=== PATIENT | female | born 2000 | race Caucasian/White ===

== ENCOUNTER 2022-06-16 15:56 | Outpatient (CLI) | payer BC, SELFPAY ==
[2022-06-16 16:25] LABS: Basophils Percent Auto 0.3 % (0.2-1.2); Eosinophils Absolute Auto 0.1 K/mm3 (0-0.3); Eosinophils Percent Auto 1.3 % (0-4.4); Hematocrit 39.5 % (37.0-47.0); Hemoglobin 12.5 g/dL (12.0-15.0); Immature Granulocyte Absolute 0.01 K/mm3 (0.00-0.031); Immature Granulocyte Percent A 0.2 % (0-0.5); Lymphocytes Absolute Auto 2.83 K/mm3 (0.9-3.2); Mean Corpuscular HGB Conc 31.6 g/dl (32-36); Mean Corpuscular Hemoglobin 25.9 pg (26-34); Mean Corpuscular Volume 81.8 fl (80-100); Mean Platelet Volume 10.6 fl (7.4-10.4); Monocytes Absolute Auto 0.9 K/mm3 (0.1-0.6); Monocytes Percent Auto 14.3 % (2.6-8.5); Neutrophils Absolute Auto 2.2 K/mm3 (1.3-6.7); Neutrophils Percent Auto 36.9 % (45.5-73.1); Platelet Count Result 245 k/mm3 (150-375); Red Blood Count 4.83 M/mm3 (4.2-5.4); Red Cell Distribution Width 12.9 % (11.5-14.5)
[2022-06-16 16:41] LABS: Alanine Aminotransferase 21 U/L (6-35); Albumin Level 3.6 g/dL (3.7-5.6); Alkaline Phosphatase 145 U/L (45-116); Anion Gap 9 mmol/L (8-16); Aspartate Amino Transferase 22 U/L (14-36); Bilirubin,Total 0.5 mg/dL (0.2-1.3); Blood Urea Nitrogen 10 mg/dL (8-21); Calcium 8.6 mg/dL (8.9-10.7); Carbon Dioxide 23 mmol/L (22-30); Chloride 105 mmol/L (98-107); Estimated Glomerular Filt Rate > 60; Glucose 102 mg/dL (65-110); Potassium 3.9 mmol/L (3.4-5.0); Sodium 137 mmol/L (134-143)
[2022-06-16 17:07] LABS: Free T4 Free Thyroxine > 6.99 ng/mL (0.78-2.19)
[2022-06-16 17:11] LABS: Thyroid Stimulating Hormone < 0.015 uIU/mL (0.465-4.680)
[2022-06-18 19:52] LABS: Thyrotropin Receptor Antibody 15.93 IU/L (<=2.00)
[2022-06-20 04:56] LABS: Thyroid Peroxidase Antibodies 140 IU/mL (<9)
[2022-06-21 14:12] LABS: Thyroid Stimulating Immunoglob 393 % baseline (<140)
== END 2022-06-16 15:57 | disposition home or self-care (01) ==
PROVIDERS: PCP Family Medicine; Visit Provider Internal Medicine
DX: E05.90 Thyrotoxicosis, unspecified without thyrotoxic crisis or storm (principal)
CPT/HCPCS: 36415; 80053; 83519; 84439; 84443; 84445; 85025; 86376

== ENCOUNTER 2022-06-18 10:55 | Outpatient (CLI) | payer BC, SELFPAY ==
--- NOTE | ~2022-06-18 | US_ITS ---
EXAMINATION: US thyroid DATE: 06/18/2022 11:27 INDICATION: Thyrotoxicosis, unspecified without thyrotoxic crisis. TECHNIQUE: Multiple ultrasound images of the thyroid were obtained. COMPARISON: None. FINDINGS: The right thyroid lobe measures 8.4 x 3.1 x 3.8 cm. The left thyroid lobe measures 7.5 x 2.8 x 3.3 c m. The thyroid is diffusely heterogeneous with increased vascularity. In the right thyroid lobe, the re is a 1.8 cm solid, hyperechoic, wider than tall nodule with lobulated margin without echogenic foc i (TI-RADS TR4). IMPRESSION: 1. Heterogeneous, hypervascular thyroid, consistent with Graves' disease. 2. Right thyroid nodule. Ultrasound-guided fine-needle aspiration is recommended. Reviewed, dictated and finalized at location A. IMPRESSION: 1. Heterogeneous, hypervascular thyroid, consistent with Graves' disease. 2. Right thyroid nodule. Ultrasound-guided fine-needle aspiration is recommende d.
== END 2022-06-18 10:56 | disposition home or self-care (01) ==
PROVIDERS: PCP Family Medicine; Visit Provider Internal Medicine
DX: E05.90 Thyrotoxicosis, unspecified without thyrotoxic crisis or storm (principal); E04.1 Nontoxic single thyroid nodule
CPT/HCPCS: 76536

== ENCOUNTER 2022-07-08 06:54 | Outpatient (CLI) | payer BC, SELFPAY ==
--- NOTE | ~2022-07-08 | NM_ITS ---
EXAMINATION: NM thyroid scan w uptake DATE: 07/09/2022 07:49 INDICATION: Graves' disease with nodule COMPARISON: None. TECHNIQUE: 515 microcuries I-123 was administered orally in capsule form. Scintigraphic images of th e thyroid gland were obtained at 24 hours. Thyroid uptake was calculated by the technologist. FINDINGS: The thyroid uptake is 88% (normal 10-30%), with the right lobe measuring 51% uptake and the left 38%. There appears to be subtle decreased uptake at the lateral inferior right thyroid lobe which is in t he vicinity of the previous identified TI-RADS 4 nodule. IMPRESSION: 1. Diffusely elevated 24-hour thyroid iodine uptake consistent with Graves' disease. 2. Subtle decreased uptake in the region of the previously noted TI RADS 4 right thyroid nodule which further strengthens prior recommendation for ultrasound-guided fine-needle aspiration. Reviewed, dictated and finalized at location B. IMPRESSION: 1. Diffusely elevated 24-hour thyroid iodine uptake consistent with Graves' di sease. 2. Subtle decreased uptake in the region of the previously noted TI RADS 4 righ t thyroid nodule which further strengthens prior recommendation for ultrasound- guided fine-needle aspiration.
== END 2022-07-08 06:55 | disposition home or self-care (01) ==
PROVIDERS: PCP Family Medicine; Visit Provider Internal Medicine
DX: E04.9 Nontoxic goiter, unspecified (principal); E05.90 Thyrotoxicosis, unspecified without thyrotoxic crisis or storm
CPT/HCPCS: 78014; A9516

== ENCOUNTER 2022-07-23 11:47 | Outpatient (CLI) | payer BC, SELFPAY ==
[2022-07-23 12:11] LABS: Alanine Aminotransferase 21 U/L (6-35); Albumin Level 3.7 g/dL (3.7-5.6); Alkaline Phosphatase 144 U/L (45-116); Anion Gap 4 mmol/L (8-16); Aspartate Amino Transferase 24 U/L (14-36); Bilirubin,Total 0.7 mg/dL (0.2-1.3); Blood Urea Nitrogen 10 mg/dL (8-21); Calcium 9.2 mg/dL (8.9-10.7); Carbon Dioxide 26 mmol/L (22-30); Chloride 109 mmol/L (98-107); Estimated Glomerular Filt Rate > 60; Glucose 118 mg/dL (65-110); Potassium 3.9 mmol/L (3.4-5.0); Sodium 139 mmol/L (134-143)
[2022-07-23 12:34] LABS: Free T4 Free Thyroxine 6.03 ng/mL (0.78-2.19)
== END 2022-07-23 11:48 | disposition home or self-care (01) ==
LOC: ANHLAB 11:48
PROVIDERS: PCP Family Medicine; Visit Provider Internal Medicine
DX: E04.9 Nontoxic goiter, unspecified (principal); E05.90 Thyrotoxicosis, unspecified without thyrotoxic crisis or storm
CPT/HCPCS: 36415; 80053; 84439

== ENCOUNTER 2022-07-30 12:22 | Outpatient (CLI) | payer BC, SELFPAY ==
--- NOTE | ~2022-07-30 | US_ITS ---
EXAMINATION: US FNA w image guidance DATE: 07/30/2022 13:40 INDICATION: Right thyroid nodule TECHNIQUE: A time-out was performed to verify the patient's name, date of , and procedure to be performed . The procedure and its benefits and risks were discussed with the patient. Risks specifically discus sed included bleeding and infection. The patient understood the risks and agreed to proceed. The neck was prepped and draped in the usual sterile manner. 3 mL 1% lidocaine was used for local anesthesia . 6 passes were made with a 25G needle into the lesion. Appropriate needle location was documented with continuous sonographic guidance. A sterile bandage was applied. There were no immediate compli cations. FINDINGS: Grayscale ultrasound images demonstrate biopsy needles advanced into the 1.6 cm solid hyperechoic nod ule with lobular margins in the right thyroid. IMPRESSION: 1. Successful ultrasound-guided fine needle aspiration of the right thyroid nodule of concern. Reviewed, dictated and finalized at location A. IMPRESSION: 1. Successful ultrasound-guided fine needle aspiration of the right thyroid no dule of concern.
== END 2022-07-30 12:23 | disposition home or self-care (01) ==
PROVIDERS: PCP Family Medicine; Visit Provider Internal Medicine
DX: E04.9 Nontoxic goiter, unspecified (principal); E05.90 Thyrotoxicosis, unspecified without thyrotoxic crisis or storm
CPT/HCPCS: 10005; 88173; 88305

== ENCOUNTER 2022-08-20 15:23 | Outpatient (CLI) | payer BC, SELFPAY ==
[2022-08-20 16:15] LABS: Free T4 Free Thyroxine > 6.99 ng/mL (0.78-2.19)
[2022-08-20 21:13] LABS: Total Triiodothyronine (T3) > 7.81 NG/ML (0.97-1.69)
== END 2022-08-20 15:24 | disposition home or self-care (01) ==
LOC: ANHLAB 15:24
PROVIDERS: PCP Family Medicine; Visit Provider Internal Medicine
DX: E05.90 Thyrotoxicosis, unspecified without thyrotoxic crisis or storm (principal)
CPT/HCPCS: 36415; 84439; 84480

== ENCOUNTER 2022-10-26 13:41 | Outpatient (CLI) | payer BC, SELFPAY ==
[2022-10-26 14:42] LABS: Alanine Aminotransferase 23 U/L (6-35); Albumin Level 4.3 g/dL (3.7-5.6); Alkaline Phosphatase 147 U/L (45-116); Anion Gap 10 mmol/L (8-16); Aspartate Amino Transferase 26 U/L (14-36); Bilirubin,Total 0.5 mg/dL (0.2-1.3); Blood Urea Nitrogen 15 mg/dL (8-21); Calcium 9.7 mg/dL (8.9-10.7); Carbon Dioxide 29 mmol/L (22-30); Chloride 99 mmol/L (98-107); Estimated Glomerular Filt Rate > 60; Glucose 103 mg/dL (65-110); Potassium 4.2 mmol/L (3.4-5.0); Sodium 138 mmol/L (134-143)
[2022-10-26 15:14] LABS: Total Triiodothyronine (T3) 4.92 NG/ML (0.97-1.69)
[2022-10-26 16:19] LABS: Free T4 Free Thyroxine 3.26 ng/mL (0.78-2.19)
== END 2022-10-26 13:42 | disposition home or self-care (01) ==
PROVIDERS: PCP Family Medicine; Visit Provider Internal Medicine
DX: E04.9 Nontoxic goiter, unspecified (principal); E05.90 Thyrotoxicosis, unspecified without thyrotoxic crisis or storm
CPT/HCPCS: 36415; 80053; 84439; 84480

== ENCOUNTER 2022-12-13 12:38 | Outpatient (CLI) | payer BC, SELFPAY ==
[2022-12-13 13:14] LABS: Basophils Percent Auto 0.3 % (0.2-1.2); Eosinophils Absolute Auto 0.1 K/mm3 (0-0.3); Eosinophils Percent Auto 1.2 % (0-4.4); Hematocrit 43.8 % (37.0-47.0); Hemoglobin 14.2 g/dL (12.0-15.0); Immature Granulocyte Absolute 0.02 K/mm3 (0.00-0.031); Immature Granulocyte Percent A 0.3 % (0-0.5); Lymphocytes Absolute Auto 2.67 K/mm3 (0.9-3.2); Lymphocytes Percent Auto 39.3 % (18.3-44.2); Mean Corpuscular HGB Conc 32.4 g/dl (32-36); Mean Corpuscular Hemoglobin 27.5 pg (26-34); Mean Corpuscular Volume 84.7 fl (80-100); Mean Platelet Volume 10.2 fl (7.4-10.4); Monocytes Absolute Auto 0.4 K/mm3 (0.1-0.6); Monocytes Percent Auto 6.3 % (2.6-8.5); Neutrophils Absolute Auto 3.6 K/mm3 (1.3-6.7); Neutrophils Percent Auto 52.6 % (45.5-73.1); Platelet Count Result 310 k/mm3 (150-375); Red Blood Count 5.17 M/mm3 (4.2-5.4); Red Cell Distribution Width 13.2 % (11.5-14.5); White Blood Count 6.8 K/mm3 (4.5-10.0)
[2022-12-13 13:18] LABS: Alanine Aminotransferase 34 U/L (6-35); Albumin Level 4.1 g/dL (3.5-5.1); Alkaline Phosphatase 137 U/L (38-126); Aspartate Amino Transferase 129 U/L (14-36); Bilirubin,Total 0.7 mg/dL (0.2-1.3)
[2022-12-13 13:48] LABS: Total Triiodothyronine (T3) 2.55 NG/ML (0.97-1.69)
[2022-12-13 13:53] LABS: Free T4 Free Thyroxine 1.22 ng/mL (0.78-2.19)
== END 2022-12-13 12:39 | disposition home or self-care (01) ==
LOC: ANHLAB 12:39
PROVIDERS: PCP Family Medicine; Visit Provider Internal Medicine
DX: E05.90 Thyrotoxicosis, unspecified without thyrotoxic crisis or storm (principal); E07.9 Disorder of thyroid, unspecified; H57.89 Other specified disorders of eye and adnexa
CPT/HCPCS: 36415; 80076; 84439; 84480; 85025

== ENCOUNTER 2022-12-28 13:44 | Outpatient (CLI) | payer BC, SELFPAY ==
[2022-12-28 14:29] LABS: Alanine Aminotransferase 23 U/L (6-35); Albumin Level 4.2 g/dL (3.5-5.1); Alkaline Phosphatase 140 U/L (38-126); Aspartate Amino Transferase 25 U/L (14-36); Bilirubin,Total 0.7 mg/dL (0.2-1.3)
[2022-12-28 15:36] LABS: Free T4 Free Thyroxine 1.04 ng/mL (0.78-2.19)
== END 2022-12-28 13:45 | disposition home or self-care (01) ==
LOC: ANHLAB 13:45
PROVIDERS: PCP Family Medicine; Visit Provider Internal Medicine
DX: E04.9 Nontoxic goiter, unspecified (principal); E05.90 Thyrotoxicosis, unspecified without thyrotoxic crisis or storm; R74.8 Abnormal levels of other serum enzymes
CPT/HCPCS: 36415; 80076; 84439

== ENCOUNTER 2023-01-31 14:12 | Outpatient (CLI) | payer BC, SELFPAY ==
[2023-01-31 15:14] LABS: Thyroid Stimulating Hormone < 0.015 uIU/mL (0.465-4.680)
[2023-01-31 15:45] LABS: Free T4 Free Thyroxine 1.82 ng/mL (0.78-2.19)
== END 2023-01-31 14:13 | disposition home or self-care (01) ==
PROVIDERS: PCP Family Medicine; Visit Provider Internal Medicine
DX: E05.90 Thyrotoxicosis, unspecified without thyrotoxic crisis or storm (principal)
CPT/HCPCS: 36415; 84439; 84443

== ENCOUNTER 2023-05-25 11:11 | Outpatient (CLI) | payer OTHER, SELFPAY ==
[2023-05-25 12:23] LABS: Free T4 Free Thyroxine 0.92 ng/mL (0.78-2.19)
[2023-05-25 12:32] LABS: Thyroid Stimulating Hormone < 0.015 uIU/mL (0.465-4.680)
[2023-05-27 19:26] LABS: Thyrotropin Receptor Antibody 6.49 IU/L (<=2.00)
[2023-05-31 14:56] LABS: Thyroid Stimulating Immunoglob 270 % baseline (<140)
== END 2023-05-25 11:12 | disposition home or self-care (01) ==
LOC: ANHLAB 11:13
PROVIDERS: PCP Family Medicine; Visit Provider Internal Medicine
DX: E05.90 Thyrotoxicosis, unspecified without thyrotoxic crisis or storm (principal)
CPT/HCPCS: 36415; 83519; 84439; 84443; 84445

== ENCOUNTER 2023-06-07 13:03 | Outpatient (CLI) | payer OTHER, SELFPAY ==
--- NOTE | ~2023-06-07 | XR_ITS ---
XR humerus LT DATE: 06/07/2023 13:20 INDICATION: Pain TECHNIQUE: AP and lateral views COMPARISON: None FINDINGS: No fracture or dislocation, periosteal reaction or bone destruction. Normal alignment at ac romioclavicular, glenohumeral and elbow joints. IMPRESSION: Negative Incidentally noted is an approximately 1.8 x 37 mm catheter-like density overlying the anterior upper arm approximately 5 cm above the elbow. Reviewed, dictated and finalized at location B. IMPRESSION: Negative Incidentally noted is an approximately 1.8 x 37 mm catheter-like density overly ing the anterior upper arm approximately 5 cm above the elbow.
== END 2023-06-07 13:04 | disposition home or self-care (01) ==
LOC: ANHIMG 13:05
PROVIDERS: PCP Family Medicine; Visit Provider Nurse Practitioner Family
DX: Z30.46 Encounter for surveillance of implantable subdermal contraceptive (principal)
CPT/HCPCS: 73060

== ENCOUNTER 2024-02-15 16:07 | Outpatient (CLI) | payer OTHER, SELFPAY ==
[2024-02-15 18:13] LABS: Total Triiodothyronine (T3) 3.52 NG/ML (0.97-1.69)
== END 2024-02-15 16:08 | disposition home or self-care (01) ==
LOC: ANHLAB 16:09
PROVIDERS: PCP Family Medicine; Visit Provider Internal Medicine
DX: E05.90 Thyrotoxicosis, unspecified without thyrotoxic crisis or storm (principal)
CPT/HCPCS: 36415; 84439; 84480

== ENCOUNTER 2024-03-23 16:03 | Outpatient (CLI) | payer OTHER, SELFPAY ==
[2024-03-23 18:12] LABS: Free T4 Free Thyroxine 2.04 ng/dL (0.78-2.19)
[2024-03-23 18:56] LABS: Alanine Aminotransferase 17 U/L (6-35); Albumin Level 3.9 g/dL (3.5-5.1); Alkaline Phosphatase 110 U/L (38-126); Anion Gap 7 mmol/L (4-12); Aspartate Amino Transferase 20 U/L (14-36); Bilirubin,Total 0.4 mg/dL (0.2-1.3); Blood Urea Nitrogen 14 mg/dL (7-17); Calcium 9.5 mg/dL (8.4-10.2); Carbon Dioxide 27 mmol/L (22-30); Chloride 103 mmol/L (98-107); Estimated Glomerular Filt Rate > 60; Glucose 85 mg/dL (65-110); Sodium 137 mmol/L (137-145)
[2024-03-23 20:50] LABS: Thyroid Stimulating Hormone < 0.015 uIU/mL (0.465-4.680)
[2024-03-23 21:01] LABS: Total Triiodothyronine (T3) 3.22 NG/ML (0.97-1.69)
== END 2024-03-23 16:04 | disposition home or self-care (01) ==
LOC: ANHLAB 16:06
PROVIDERS: PCP Family Medicine; Visit Provider Internal Medicine
DX: E05.90 Thyrotoxicosis, unspecified without thyrotoxic crisis or storm (principal); E05.00 Thyrotoxicosis with diffuse goiter without thyrotoxic crisis or storm
CPT/HCPCS: 36415; 80053; 84439; 84443; 84480

== ENCOUNTER 2024-05-22 07:58 | Outpatient (CLI) | payer OTHER, SELFPAY ==
--- OUTSIDE RECORDS SUMMARY | 2024-05-22 08:11 | XMS_ITS | Clinical Summary ---
Author Organization [facility] Address [address] [facility] [place] [address] Care Team Providers Care Chief Librarian Branch Name Role Phone Matt Sun MD Primary Care Provider [phone] Source Comments [facility],non-owned Affiliates and Associated Physician Practices is amultiple site organization consisting of ambulatory clinics and hospital sitesin [place], [place], [place] and [place]. This disclosure is being madepursuant to the Care Everywhere program and may not contain all information available regarding this patient. Last updated 17.[facility] Allergies No known active allergies Medications * Be aware that medications may not be up to date on this document. Alwaysverify current medications with the patient. Medication Sig Dispensed Refills Start Date End Date Status Benzoyl Peroxide 2.5 % 1 Each by Apply externally route 2 times daily 21 g 1 07/06/2018 Active Active Problems Problem Noted Date Diagnosed Date Anxiety with depression 04/28/2018 Resolved Problems Problem Noted Date Diagnosed Date Resolved Date BMI (body mass index), pedia tric, 95-99% for age 0810/28/2017 12/12/2019 BMI (body mass index), pedia tric, 85% to less than 95% for age 0810/25/2016 10/28/2017 Encounters Date Type Department Care Team Description 03/20/2024 Telephone [facility] - ENT [address] [place] [address] Serene Carlos, RN MH Cancelled Appointment from Last 3 Months Immunizations Name Administration Dates Next Due DTaP VACCINE IM (6wk-6yrs) 08/15/2007,,05/02/2003,03/04,2002 HEP A PEDS 2 DOSE 08/15/2007,11/01/2006 HEP B VACCINE, PED/ADOL 05/02/2003,03/04,2002,10/29 HIB BOOSTER 03/20/2004, 4,03/04/2003,12/31 Human Papilloma Virus Nineva lent Vaccine 10/23/2016,12/01/2015,09/22/2015 MENINGOCOCCAL CONJUGATE (MCV4P) 12/11/2019,09/21 MMR 08/15/2007,11/01/2003 PNEUMOCOCCAL CONJ, PEDS 11/01/2003,05/02,03/04/2003,12/31 POLIO IPV 08/15/2007, 4,03/04/2003,12/31 PPD 11/01/2003 TDAP (7yrs+) 08/23/2013 VARICELLA 11/01/2006,03/20/2004 Family History Medical History Relation Name Comments CAD (Coronary Artery Disease) Father Hypercholesterolemia Father Hypertension Father Relation Name Status Comments Father Social History Tobacco Use Types Packs/Day Years Used Date Smoking Tobacco: Never Smokeless Tobacco: Never Alcohol Use Standard Drinks/Week Comments Never 0 (1 standard drink = 0.6 oz pur e alcohol) AUDIT-C Answer Date Recorded Q1: How often do you have a drink containing alc ohol? Never 06/21/2019 Average Number of Drinks Not on file 020 Frequency of Binge Drinking Not on file 06/05 Sex and Gender Information Value Date Recorded Sex Assigned at Not on file Gender Identity Not on file Sexual Orientation Not on file Last Filed Vital Signs Vital Sign Reading Time Taken Comments Blood Pressure 144/95 12/11/2019 10:33 AM CDT Pulse 134 08/31/2019 11:37 AM CDT Temperature 36.4 C (97.5 F) 12/11/2019 10:33 AM CDT Respiratory Rate 16 06/21/2019 5:59 PM CDT Oxygen Saturation - - Inhaled Oxygen Concentration - - Weight 75.3 kg (166 lb) 12/11/2019 10:33 AM CDT Height 169.5 cm (5' 6.75 ) 12/11/2019 10:33 AM C DT Body Mass Index 26.19 12/11/2019 10:33 AM CDT Plan of Treatment Health Maintenance Due Date Last Done Comments PAP SMEAR 2002 HIV SCREENING 2017 CHLAMYDIA/GONORRHEA SCREENING 2018 MENINGOCOCCAL (Group B) VACC INE SHARED DECISION-MAKING (1 of 2 - Standard) 2018 HEPATITIS C SCREENING 10/24/2020 DTAP/TDAP/TD VACCINES (7 - T d or Tdap) 08/24/2023 08/23/2013, 08/15/2007, 04/27/2004, Additional history exists COVID-19 VACCINE (2023-2 5 season) 2023 INFLUENZA VACCINE (#1) 2023 DEPRESSION SCREENING 03/07/2024 ZOSTER VACCINE (1 of 2) 2052 HEPATITIS B VACCINE Completed 05/02/2003, 03/04/2003, 2002, Additional history exists PNEUMOCOCCAL VACCINE Completed 11/01/2003, 05/02/2003, 03/04/2003, Additional history exists HIB VACCINE Completed 03/20/2004, 05/06, 03/04/2003, Additional history exists HPV VACCINE Completed 10/23/2016, 11/06, 09/22/2015 MENINGOCOCCAL GROUPS A/C/Y/W VACCINE Completed 12/11/2019, 09/22/2015 Goals Goal Patient Goal Type Associated Problems Recent Progress Patient-Stated? Author Use safety retraint in car Lifestyle On track( 020 3:21 PM MEMBERSHIP COUNSELOR) No Stoney Barrios RN Care Teams Chief Librarian Branch Relationship Specialty Start Date End Date Matt Sun MD [address] [place] [address] PCP - General Family Medicine 09/20/22
--- OUTSIDE RECORDS SUMMARY | 2024-05-22 08:11 | XMS_ITS | Referral Summary ---
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 Discharge Disposition: Discharge to home or self care 04/10/2024 6:28 PM SAMPLE TAKER OPERATOR - 04/10/2024 11:59 PM SAMPLE TAKER OPERATOR Hospital Encounter [address] [address] Influenza A Discharge Disposition: Discharge to home or self care 04/10/2024 6:00 PM SAMPLE TAKER OPERATOR Office Visit [facility] Medical Group [facility] at [address] [address] Jeannette Mays PA Influenza A (Primary Dx) 04/10/2024 11:15 AM SAMPLE TAKER OPERATOR Lab [facility] at [address] [address] 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 03/26/2024 11:00 AM SAMPLE TAKER OPERATOR Office Visit [facility] Medical Office Building 2 Radiation Oncology [address] [place] [address] Mendy Sanchez MD 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 03/15/2024 9:45 AM SAMPLE TAKER OPERATOR Office Visit [facility] Ophthalmology [address] [facility] [address]th [place] [address] Conor Neff MD Thyroid eye disease (Primary Dx) 03/01/2024 10:45 PM SAMPLE TAKER OPERATOR - 03/01/2024 11:59 PM SAMPLE TAKER OPERATOR Hospital Encounter [facility] [id number] [place] [address] COVID Discharge Disposition: Discharge to home or self care 03/01/2024 4:15 PM SAMPLE TAKER OPERATOR Office Visit [facility] at [address] [address] Jeannette Mays PA COVID (Primary Dx) 02/23/2024 12:30 PM SAMPLE TAKER OPERATOR Office Visit [facility] Medical [facility] at [address] [address] Gabi Duran NP Acute gastroenteritis (Primary Dx) from Last 3 Months Allergies No known active allergies Medications atenoloL (TENORMIN) 25 mg tablet 08/16/2022 Active PARoxetine (PAXIL) 20 mg tablet TAKE 1 TABLET BY MOUTH EVERY DAY IN THE MORNING FOR 90 DAYS 08/13/2022 Active methIMAzole (TAPAZOLE) 10 mg tablet Take 4 tablets (40 mg total) by mouth daily 09/03/2022 Active selenium 200 mcg tablet Take 0.5 tablets (100 mcg total) by mouth daily 10/21/2022 Active atenoloL (TENORMIN) 50 mg tablet TAKE 1 TABLET ORALLY DAILY HOLD IF SYSTOLIC BLOOD PRESSURE IS LESS THAN 100 OR HR IS LESS THAN 50 02/16/2024 Active amoxicillin (AMOXIL) 875 mg tablet TAKE 1 TABLET BY MOUTH TWICE A DAY UNTILL GONE 04/07/2024 Active Active Problems Problem Noted Date Diagnosed Date 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 Monthly or less 09/20/2022 Average Number of Drinks Not on file 023 Frequency of Binge Drinking Not on file 09/04 Comments Unknown Sex and Gender Information Value Date Recorded Sex Assigned at Not on file Legal Sex Female 11:51 AM CDT Gender Identity Not on file Sexual Orientation Not on file Last Filed Vital Signs Vital Sign Reading Time Taken Comments Blood Pressure 122/82 04/10/2024 6:09 PM SAMPLE TAKER OPERATOR Pulse 110 04/10/2024 6:09 PM SAMPLE TAKER OPERATOR Temperature 36.7 C (98.1 F) 04/10/2024 6:09 PM SAMPLE TAKER OPERATOR Respiratory Rate 20 04/10/2024 6:09 PM SAMPLE TAKER OPERATOR Oxygen Saturation 98% 04/10/2024 6:09 PM SAMPLE TAKER OPERATOR Inhaled Oxygen Concentration - - Weight 87.5 kg (193 lb) 04/10/2024 6:09 PM SAMPLE TAKER OPERATOR Height 167.6 cm (5' 6 ) 02/23/2024 12:29 PM SAMPLE TAKER OPERATOR Body Mass Index 31.15 02/23/2024 12:29 PM SAMPLE TAKER OPERATOR Plan of Treatment Not on file Procedures Procedure Name Priority Date/Time Associated Diagnosis Comments NM CANCER ABLATION I-131 THERAPY Schedule Routine, Read Routine (OP Routine) 04/11/2024 11:01 AM SAMPLE TAKER OPERATOR 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 THROAT CULTURE Routine 04/10/2024 6:28 PM SAMPLE TAKER OPERATOR Influenza A POCT RAPID STREP Routine 04/10/2024 6:20 PM SAMPLE TAKER OPERATOR Influenza A POC INFLUENZA A/B, COVID-19 ANTIGEN Routine 04/10/2024 6:15 PM SAMPLE TAKER OPERATOR Influenza A HCG, BLOOD, QUANTITATIVE Routine 04/10/2024 11:17 AM SAMPLE TAKER OPERATOR 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 Please refer to the physician's procedure / OR operative note. us Mendy Sanchez MD IMG NM PROCEDURES Final R esult Performing Organization Address City/[facility]/ZIP Co de Phone Number [email or web address] * Throat culture Throat (04/10/2024 6:28 PM SAMPLE TAKER OPERATOR) Report Final Report: No growth of pathogens. Comment:Testing performed by : [facility], [address] [place] [address] Throat 04/10/2024 6:28 PM SAMPLE TAKER OPERATOR 04/11/2024 12:09 AM SAMPLE TAKER OPERATOR Narrative MAHENDRA CUNNINGHAM - 04/11/2024 6:38 PM SAMPLE TAKER OPERATOR Testing performed by [facility] Microbiology Laboratory ([phone]). us Jeannette ESTRADA LAB MICROBIOLOGY - GENER AL ORDERABLES Final Result Performing Organization Address City/[facility]/ZIP Co de Phone Number CAYDENCHETNA [address] [address] Department [place] [address] * POCT rapid strep A (04/10/2024 6:20 PM SAMPLE TAKER OPERATOR) Rapid Strep A, POC Negative Negative Swab 04/10/2024 6:20 PM SAMPLE TAKER OPERATOR Jeannette ESTRADA POINT OF CARE TEST ORDER FERNANDO Final Result * (ABNORMAL) POC Influenza A/B, COVID-19 antigen (04/10/2024 6:15 PM SAMPLE TAKER OPERATOR) Influenza A Ag, POC Positive(A) Negative [facility] Influenza B Ag, POC Negative Negative [facility] COVID-19 Ag POC Presumptive Negative Presumptive Negative, Invalid [facility] Nasal 04/10/2024 6:15 PM SAMPLE TAKER OPERATOR Jeannette ESTRADA POINT OF CARE TEST ORDER FERNANDO Final Result Performing Organization Address [facility] Co de Phone Number [facility] [address] [place] [address] * hCG, blood, quantitative (04/10/2024 11:17 AM SAMPLE TAKER OPERATOR) Pathologist [facility] hCG, quant <5.0 0.0 - 5.0 IUnits/L Comment: Interpretive Data Male: < 5 IU/L Non- premenopausal Female: <5 IU/L The Merly hCG Beta Quant assay procedure was used. Results from different manufacturers or methods may not be comparable. Serial testing should be performed using the same method. Interpretive Data was last revised on 2023 Testing performed by: [facility], [address] [place] [address]., [address] Blood 04/10/2024 11:1 7 AM SAMPLE TAKER OPERATOR 04/10/2024 11:44 AM SAMPLE TAKER OPERATOR Mendy Sanchez MD LAB BLOOD ORDERABLES Edit ed Result - Final MAHENDRA [address] [facility] Department [place] [address] * (ABNORMAL) POC Influenza A/B, COVID-19 antigen (03/01/2024 4:32 PM SAMPLE TAKER OPERATOR) Influenza A Ag, POC Negative Negative [facility] Influenza B Ag, POC Negative Negative [facility] COVID-19 Ag POC Positive(A) Presumptive Negative, Invalid [facility] Nasal 03/01/2024 4:32 PM SAMPLE TAKER OPERATOR Jeannette ESTRADA POINT OF CARE TEST ORDER FERNANDO Final Result Performing Organization Address City/[facility]/ZIP Co de Phone Number [facility] [address] [place] [address] * POCT rapid strep A (03/01/2024 4:32 PM SAMPLE TAKER OPERATOR) Pathologist [facility] Rapid Strep A, POC Negative Negative Swab 03/01/2024 4:32 PM SAMPLE TAKER OPERATOR Jeannette ESTRADA POINT OF CARE TEST ORDER FERNANDO Final Result * Throat culture Throat (03/01/2024 4:00 PM SAMPLE TAKER OPERATOR) Report Final Report: No growth of pathogens. Comment:Testing performed by : [facility], [address] [place]., [address] Throat 03/01/2024 4:00 PM SAMPLE TAKER OPERATOR 03/02/2024 6:56 AM SAMPLE TAKER OPERATOR Narrative MAHENDRA Bell 03/03/2024 2:54 PM SAMPLE TAKER OPERATOR Testing performed by [facility] Microbiology Laboratory ([phone]). Jeannette ESTRADA LAB MICROBIOLOGY - GENER AL ORDERABLES Final Result Performing Organization Address City/[facility]/ZIP Co de Phone Number MAHENDRA CUNNINGHAM [address] [address] Department [place] [address] * POC Influenza A/B, COVID-19 antigen (02/23/2024 12:25 PM SAMPLE TAKER OPERATOR) Influenza A Ag, POC Negative Negative [facility] Influenza B Ag, POC Negative Negative [facility] COVID-19 Ag POC Presumptive Negative Presumptive Negative, Invalid [facility] Nasopharyngeal 02/23/2024 12 :25 PM SAMPLE TAKER OPERATOR Gabi Duran NP POINT OF CARE TEST ORDERABLES F inal Result [facility] [address] from Last 3 Months Additional Health Concerns Infection Onset Date Last Indicated COVID: Recovered Comment:Added based on recent COVID infection. 03/11/2024 025 Insurance [facility] Care Teams President [employer] Relationship Specialty Start Date End Date Matt Sun MD [address] [place] [address] PCP - General Family Medicine 08/25/22 Mendy Sanchez MD [address] [address] Radiation Oncologist Radiation Oncology 03/01/24 Perry Rice MD [address] [facility] [address] [place] [address] Consulting Physician Internal Medicine 03/01/24
--- OUTSIDE RECORDS SUMMARY | 2024-05-22 08:11 | XMS_ITS | Referral Summary ---
Author Organization [facility] Address [address] [place] [address] Care Team Providers Care Hi Lift Operator Name Role Phone Matt Sun MD Primary Care Provider [phone] Source Comments [facility],non-owned Affiliates and Associated Physician Practices is amultiple site organization consisting of ambulatory clinics and hospital sitesin [place], [place], [place] and [place]. This disclosure is being madepursuant to the Care Everywhere program and may not contain all information available regarding this patient. Last updated 17.[facility] Encounters Date Type Department Care Team Description 03/20/2024 Telephone [facility] - E[facility] [address] [place] [address] Sernee Carlos, RN MH Cancelled Appointment from Last 3 Months Allergies No known active allergies Medications * [...] less than 95% for age 0810/25/2016 10/28/2017 Immunizations Name Administration Dates Next Due DTaP VACCINE IM (6wk-6yrs) 08/15/2007,,05/02/2003,03/04,2002 HEP A PEDS 2 DOSE 08/15/2007,11/01/2006 HEP B VACCINE, PED/ADOL 05/02/2003,03/04,2002,10/29 HIB BOOSTER 03/20/2004, 4,03/04/2003,12/31 Human Papilloma Virus Nineva lent Vaccine 10/23/2016,12/01/2015,09/22/2015 MENINGOCOCCAL CONJUGATE (MCV4P) 12/11/2019,09/21 MMR 08/15/2007,11/01/2003 PNEUMOCOCCAL CONJ, PEDS 11/01/2003,05/02,03/04/2003,12/31 POLIO IPV 08/15/2007, 4,03/04/2003,12/31 PPD 11/01/2003 TDAP (7yrs+) 08/23/2013 VARICELLA 11/01/2006,03/20/2004 Social History Tobacco Use Types Packs/Day Years [...] 12/11/2019 10:33 AM CDT Plan of Treatment Not on file Goals Goal Patient Goal Type Associated Problems Recent Progress Patient-Stated? Author Use safety retraint in car Lifestyle On track( 020 3:21 PM SHIP/REC/DOC CONTROL) Stoney Barbosa, NAMITA Care Teams Hi Lift Operator Relationship Specialty Start Date End Date Matt Sun MD [address] [place] [address] PCP - General Family Medicine 09/20/22
--- OUTSIDE RECORDS SUMMARY | 2024-05-22 08:11 | XMS_ITS | Clinical Summary ---
Author Organization [facility] Address [address] [place] [address] Care Team Providers Care Maint Mechanic Name Role Phone Matt Sun MD Primary Care Provider [phone] Mendy Sanchez MD Unavailable [phone] Perry Rice MD Unavailable [phone] Allergies No known active allergies Medications atenoloL [...] Graves' disease 09/20/2022 Anxiety with depression 04/28/2018 Encounters Date Type Department Care Team Description 04/11/2024 10:21 AM GOLF COURSE STARTER - 04/11/2024 11:59 PM GOLF COURSE STARTER Hospital Encounter [facility] [address] [address] 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 Discharge Disposition: Discharge to home or self care 04/10/2024 6:28 PM GOLF COURSE STARTER - 04/10/2024 11:59 PM GOLF COURSE STARTER Hospital Encounter [address] [address] Influenza A Discharge Disposition: Discharge to home or self care 04/10/2024 6:00 PM GOLF COURSE STARTER Office Visit [facility] at [address] [address] Jeannette Mays PA Influenza A (Primary Dx) 04/10/2024 11:15 AM GOLF COURSE STARTER Lab [facility] at [address] [address] 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 03/26/2024 11:00 AM GOLF COURSE STARTER Office Visit [facility] Building 2 Radiation Oncology [address] [place] [address] Mendy Sanchez MD 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 03/15/2024 9:45 AM GOLF COURSE STARTER Office Visit [facility] Ophthalmology [facility] [address] [place] [phone] Conor Neff MD Thyroid eye disease (Primary Dx) 03/01/2024 10:45 PM GOLF COURSE STARTER - 03/01/2024 11:59 PM GOLF COURSE STARTER Hospital Encounter [address] [address] COVID Discharge Disposition: Discharge to home or self care 03/01/2024 4:15 PM GOLF COURSE STARTER Office Visit [facility] at [address] [address] Jeannette Mays PA COVID (Primary Dx) 02/23/2024 12:30 PM GOLF COURSE STARTER Office Visit [facility] at [address] [address] Gabi Duran NP Acute gastroenteritis (Primary Dx) from Last 3 Months Surgical History Surgery Date Site/Laterality Comments TONSILLECTOMY 03/07/2009 - 03/06/2010 HERNIA REPAIR 03/07/2005 - 03/06/2006 abdominal WISDOM TOOTH EXTRACTION 03/07/2018 - 03/06/2019 Medical History Medical History Date Comments Thyroid disease Hypertension Anxiety Depression Family History Medical History Relation Name Comments Thyroid disease Cousin Thyroid disease Father's Sister 1 Thyroid disease Father's Sister 2 Glaucoma Maternal Grandfather Thyroid disease Paternal Grandmother Macular degeneration Neg Hx Relation Name Status Comments Cousin Alive Father's Sister 1 Father's Sister 2 Alive Maternal Grandfather Paternal Grandmother Social History Tobacco Use Types Packs/Day Years [...] on file Sexual Orientation Not on file Obstetrics History Last Filed Vital Signs Vital Sign Reading Time Taken Comments Blood Pressure 122/82 04/10/2024 6:09 PM GOLF COURSE STARTER Pulse 110 04/10/2024 6:09 PM GOLF COURSE STARTER Temperature 36.7 C (98.1 F) 04/10/2024 6:09 PM GOLF COURSE STARTER Respiratory Rate 20 04/10/2024 6:09 PM GOLF COURSE STARTER Oxygen Saturation 98% 04/10/2024 6:09 PM GOLF COURSE STARTER Inhaled Oxygen Concentration - - Weight 87.5 kg (193 lb) 04/10/2024 6:09 PM GOLF COURSE STARTER Height 167.6 cm (5' 6 ) 02/23/2024 12:29 PM GOLF COURSE STARTER Body Mass Index 31.15 02/23/2024 12:29 PM GOLF COURSE STARTER Plan of Treatment Health Maintenance Due Date Last Done Comments Cervical Cancer Screening 2002 Depression Screening 2002 Hepatitis C Screening 2002 Meningococcal B Vaccine (1 o f 2 - Standard) 2018 Regular Well Visit/Exam 18-64 2020 Pneumococcal vaccine <65 (1 of 2 - PCV) 2021 DTaP/Tdap/Td Vaccine (7 - Td or Tdap) 08/24/2023 08/23/2013, 08/15/2007, 04/27/2004, Additional history exists Influenza Vaccine (#1) 2023 Hepatitis B Screening Completed 05/02/2003 , 03/04/2003, 2002, Additional history exists Varicella Vaccines Completed 11/01/2006, 03/20/2004 HPV Vaccines Completed 10/23/2016, 11/06, 09/22/2015 Meningococcal Vaccine Completed 12/11/2019, 016 Procedures Procedure Name Priority Date/Time Associated Diagnosis Comments NM CANCER ABLATION I-131 THERAPY Schedule Routine, Read Routine (OP Routine) 04/11/2024 11:01 AM GOLF COURSE STARTER 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 THROAT CULTURE Routine 04/10/2024 6:28 PM GOLF COURSE STARTER Influenza A POCT RAPID STREP Routine 04/10/2024 6:20 PM GOLF COURSE STARTER Influenza A POC INFLUENZA A/B, COVID-19 ANTIGEN Routine 04/10/2024 6:15 PM GOLF COURSE STARTER Influenza A HCG, BLOOD, QUANTITATIVE Routine 04/10/2024 11:17 AM GOLF COURSE STARTER 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 Please refer to the physician's procedure / OR operative note. Mendy Sanchez MD IMG NM PROCEDURES Final R esult Performing Organization Address City/[facility]/ZIP Co de Phone Number RAD_[email or web address] * Throat culture Throat (04/10/2024 6:28 PM GOLF COURSE STARTER) Report Final Report: No growth of pathogens. Comment:Testing performed by : [facility], [address] [facility], [place]., [address] Throat 04/10/2024 6:28 PM GOLF COURSE STARTER 04/11/2024 12:09 AM GOLF COURSE STARTER Narrative MAHENDRA - 04/11/2024 6:38 PM GOLF COURSE STARTER Testing performed by [facility] ([phone]). Jeannette ESTRADA LAB MICROBIOLOGY - GENER AL ORDERABLES Final Result Performing Organization Address [facility] Co de Phone Number MAHENDRA [address] [address] Department [place] [address] * POCT rapid strep A (04/10/2024 6:20 PM GOLF COURSE STARTER) Pathologist [facility] Rapid Strep A, POC Negative Negative Swab 04/10/2024 6:20 PM GOLF COURSE STARTER Jeannette ESTRADA POINT OF CARE TEST ORDER FERNANDO Final Result * (ABNORMAL) POC Influenza A/B, COVID-19 antigen (04/10/2024 6:15 PM GOLF COURSE STARTER) Influenza A Ag, POC Positive(A) Negative [facility] Influenza B Ag, POC Negative Negative [facility] COVID-19 Ag POC Presumptive Negative Presumptive Negative, Invalid [facility] Nasal 04/10/2024 6:15 PM GOLF COURSE STARTER Jeannette ESTRADA POINT OF CARE TEST ORDER FERNANDO Final Result Performing Organization Address [facility] Co de Phone Number [facility] [address] [place] [address] * hCG, blood, quantitative (04/10/2024 11:17 AM GOLF COURSE STARTER) hCG, quant <5.0 0.0 - 5.0 IUnits/L Comment: Interpretive Data Male: < 5 IU/L Non- premenopausal Female: <5 IU/L The Mer[employer] hCG Beta Quant assay procedure was used. Results from different manufacturers or methods may not be comparable. Serial testing should be performed using the same method. Interpretive Data was last revised on 2023 Testing performed by: [facility], [address] [place] [address]., [id number] Blood 04/10/2024 11:1 7 AM GOLF COURSE STARTER 04/10/2024 11:44 AM GOLF COURSE STARTER Mendy Sanchez MD LAB BLOOD ORDERABLES Edit ed Result - Final Performing Organization Address [facility] Co de Phone Number MAHENDRA [address] [facility] [place] [address] * (ABNORMAL) POC Influenza A/B, COVID-19 antigen (03/01/2024 4:32 PM GOLF COURSE STARTER) Influenza A Ag, POC Negative Negative [facility] Influenza B Ag, POC Negative Negative [facility] COVID-19 Ag POC Positive(A) Presumptive Negative, Invalid [facility] Nasal 03/01/2024 4:32 PM GOLF COURSE STARTER Jeannette ESTRADA POINT OF CARE TEST ORDER FERNANDO Final Result Performing Organization Address City/[facility] Co de Phone Number [facility] [address] [place] [address] * POCT rapid strep A (03/01/2024 4:32 PM GOLF COURSE STARTER) Rapid Strep A, POC Negative Negative Swab 03/01/2024 4:32 PM GOLF COURSE STARTER Jeannette ESTRADA POINT OF CARE TEST ORDER FERNANDO Final Result * Throat culture Throat (03/01/2024 4:00 PM GOLF COURSE STARTER) Report Final Report: No growth of pathogens. Comment:Testing performed by : [facility], [address] [place]., [address] Throat 03/01/2024 4:00 PM GOLF COURSE STARTER 03/02/2024 6:56 AM GOLF COURSE STARTER Narrative MAHENDRA - 03/03/2024 2:54 PM GOLF COURSE STARTER Testing performed by [facility] ([phone]). Jeannette ESTRADA LAB MICROBIOLOGY - GENER AL ORDERABLES Final Result [facility] [address] [address] Department [place] [address] * POC Influenza A/B, COVID-19 antigen (02/23/2024 12:25 PM GOLF COURSE STARTER) Influenza A Ag, POC Negative Negative [facility] Influenza B Ag, POC Negative Negative [facility] COVID-19 Ag POC Presumptive Negative Presumptive Negative, Invalid [facility] Nasopharyngeal 02/23/2024 12 :25 PM GOLF COURSE STARTER Gabi Duran NP POINT OF CARE TEST ORDERABLES F inal Result [facility] [address] [place] [address] from Last 3 Months Additional Health Concerns Infection Onset Date Last Indicated COVID: Recovered Comment:Added based on recent COVID infection. 03/11/2024 025 Insurance [facility] [address] [place] [phone] Care Teams Maint Mechanic Relationship Specialty Start Date End Date Matt Sun MD [address] [place] [id number] PCP - General Family Medicine 08/25/22 Mendy Sanchez MD [address] [address] Radiation Oncologist Radiation Oncology 03/01/24 Perry Rice MD [address] [facility] [address] [place] [address] Consulting Physician Internal Medicine 03/01/24
--- OUTSIDE RECORDS SUMMARY | 2024-05-22 08:11 | XMS_ITS | Patient Health Summary ---
Author Organization [facility] [employer] Address [address] [place] [address] Care Team Providers Care Shift Leader Name Role Phone Matt Sun MD Primary Care Provider [phone] Note from [facility],non-owned Affiliates and Associated Physician Practices is amultiple site organization consisting of ambulatory clinics and hospital sitesin [place], [place], [place] and [place]. This disclosure is being madepursuant to the Care Everywhere program and may not contain all information available regarding this patient. Last updated 17.[facility] [employer] Allergies No known active allergies Medications * Be aware that medications may not be up to date on this document. Alwaysverify current medications with the patient. * Benzoyl Peroxide 2.5 %(Started 07/06/2018) 1 Each by Apply externally route 2 times daily 1 refill remaining Active Problems Problem Noted Date Diagnosed Date Anxiety with depression 04/28/2018 Resolved Problems Problem Noted Date Diagnosed Date Resolved Date BMI (body mass index), pedia tric, 95-99% for age 0810/28/2017 12/12/2019 BMI (body mass index), pedia tric, 85% to less than 95% for age 0810/25/2016 10/28/2017 Immunizations * DTaP VACCINE IM (6wk-6yrs)(Given 08/15/2007, 04/27/2004, 05/02/2003, 03/04/2003, 2002) * HEP A PEDS 2 DOSE(Given 08/15/2007, 11/01/2006) * HEP B VACCINE, PED/ADOL(Given 05/02/2003, 03/04/2003, 2002, 2002) * HIB BOOSTER(Given 03/20/2004, 05/31/2003, 03/04/2003, 2002) * Human Papilloma Virus Ninevalent Vaccine(Given 10/23/2016, 12/01/2015, 09/22/2015) * MENINGOCOCCAL CONJUGATE (MCV4P)(Given 12/11/2019, 09/22/2015) * MMR(Given 08/15/2007, 11/01/2003) * PNEUMOCOCCAL CONJ, PEDS(Given 11/01/2003, 05/02/2003, 03/04/2003, 2002) * POLIO IPV(Given 08/15/2007, 05/02/2003, 03/04/2003, 2002) * PPD(Given 11/01/2003) * TDAP (7yrs+)(Given 08/23/2013) * VARICELLA(Given 11/01/2006, 03/20/2004) Social History Tobacco Use Types Packs/Day Years [...] Mass Index 26.19 12/11/2019 10:33 AM CDT Procedures * LAB RESULTS ORDER(Performed 02/16/2020) * LIPID PROFILE+GLUCOSE - POINT OF CARE (AMB)(Performed 12/11/2019) Performed for Screening cholesterol level * CULTURE RESPIRATORY UPPER(Performed 04/04/2017) * MYCOPLASMA PNEUMONIAE AB IGG/IGM PANEL(Performed 04/04/2017) Performed for Malaise and fatigue * BERTRAND-JOHNSON VIRUS ANTIBODY PANEL(Performed 04/04/2017) Performed for Malaise and fatigue * COMPREHENSIVE METABOLIC PANEL(Performed 04/04/2017) Performed for Malaise and fatigue * CBC W AUTO DIFFERENTIAL(Performed 04/04/2017) Performed for Malaise and fatigue * STREP A SCREEN - POINT OF CARE (AMB)(Performed 04/04/2017) Performed for Sore throat * XR BONE AGE STUDY(Performed 07/31/2010) Performed for Premature adrenarche (HCC) * LIPID PROFILE(Performed 06/06/2010) Performed for BMI (body mass index), pediatric, 85% to less than 95% for age * TESTOSTERONE TOTAL(Performed 06/06/2010) Performed for Premature adrenarche (HCC) * ESTRADIOL(Performed 06/06/2010) Performed for Premature adrenarche (HCC) * FSH + LH PANEL(Performed 06/06/2010) Performed for Premature adrenarche (HCC) * STREP A SCREEN - POINT OF CARE (AMB)(Performed 01/10/2010) Performed for Sore throat * CULTURE THROAT(Performed 01/10/2010) * STREP A SCREEN - POINT OF CARE (AMB)(Performed 12/04/2009) Performed for Streptococcal sore throat * XR AIRWAY LAT(Performed 12/04/2009) Performed for Snoring * STREP A SCREEN - POINT OF CARE (AMB)(Performed 03/28/2009) Performed for Streptococcal Sore Throat * GROSS + MICRO EXAM(Performed 06/10/2004) Results * LAB RESULTS ORDER (02/16/2020) Provider Unknown LAB - THERAPEUTIC DR WORTHY MONITORING ORDERABLES * LIPID PROFILE+GLUCOSE - POINT OF CARE (AMB) (12/11/2019 11:08 AM CDT) QC Verified Yes Yes Cholesterol POCT 161 200 mg/dl HDL POCT 58 mg/dL Triglycerides POCT 102 130 mg/dL LDL 83 130 mg/dl Non HDL Cholesterol POCT 103 145 mg/dL Total Cholesterol/HDL Ratio POCT 2.8 6.0 Glucose 97 70 - 126 mg/dL Blood BLOOD SPECIMEN / Unknown 12/11/2019 11:08 AM CDT Marita Rubalcava MD LAB - POINT OF CARE ORDERABLES * CULTURE RESPIRATORY UPPER (04/04/2017 4:53 PM FLASH RANGING CREWMEMBER) Upper Respiratory Culture Final report [facility] ACCOUNT BILL Result 1 [facility] ACCOUNT BILL Comment:Mixed bacterial tish a. 04/04/2017 4:53 PM FLASH RANGING CREWMEMBER 04/04/2017 Narrative Resulting Agency Comment [facility] [address] [facility] [id number] Tucker James DO LAB - MICROBIOL OGY ORDERABLES Performing Organization Address [facility] de Phone Number [facility] ACCOUNT BILL [address] [place] [address] * (ABNORMAL) MYCOPLASMA PNEUMO ANTIBODY IGG/IGM PANEL (04/04/2017 3:22 PM FLASH RANGING CREWMEMBER) Pathologist [facility] Mycoplasma pneumoniae Antibody IgG 315(H) 0 - 99 U/mL [facility] ACCOUNT BILL Comment: Negative: <100 Indeterminate: 100 - 320 Positive: >320 The reference interval established is intended as a baseline only. Values >100 may indicate a recent infection with Mycoplasma pneumoniae and need to be confirmed either by a positive IgM result and/or an additional specimen drawn 2-4 weeks later showing a significant increase in antibody levels. Mycoplasma pneumoniae Antibody IgM <770 0 - 769 U/mL [facility] ACCOUNT BILL Comment: Negative <770 Clinically significant amount of M. pneumoniae antibody not detected. Low Positive 770 - 950 M. pneumoniae specific IgM presumptively detected. It is recommended that another sample be collected 1-2 weeks later to assure reactivity. Positive >950 Highly significant amount of M. pneumoniae specific IgM antibody detected. Blood BLOOD SPECIMEN / Unknown 04/04/2017 3:22 PM FLASH RANGING CREWMEMBER 04/04/2017 Narrative Resulting Agency Comment [facility] [address] [facility] [id number] Tucker James DO LAB - SEROLOGY ORDERABLES Performing Organization Address City/[facility]/ZIP Co de Phone Number [facility] ACCOUNT BILL [address] [place] [address] * BERTRAND-JOHNSON VIRUS PANEL (04/04/2017 3:22 PM FLASH RANGING CREWMEMBER) Bertrand-Johnson Viral Capsid Antigen Antibody IgM <36.0 0.0 - 35.9 U/mL [facility] ACCOUNT BILL Comment: Negative <36.0 Equivocal 36.0 - 43.9 Positive >43.9 Bertrand-Johnson Virus Early Antigen Antibody IgG <9.0 0.0 - 8.9 U/mL [facility] ACCOUNT BILL Comment: Negative < 9.0 Equivocal 9.0 - 10.9 Positive >10.9 Bertrand-Johnson Viral Capsid Antigen Antibody IgG <18.0 0.0 - 17.9 U/mL [facility] ACCOUNT BILL Comment: Negative <18.0 Equivocal 18.0 - 21.9 Positive >21.9 Bertrand-Johnson Virus Antibody IgG Nuclear Antigen <18.0 0.0 - 17.9 U/mL [facility] ACCOUNT BILL Comment: Negative <18.0 Equivocal 18.0 - 21.9 Positive >21.9 Interpretation [facility] ACCOUNT BILL Comment: EBV Interpretation Chart . Interpretation EBV-IgM EA(D)-IgG VCA-IgG EBNA-IgG . EBV Seronegative - - - - Early Phase + - - - Acute Primary + +or- + - Infection Convalescence/Past - +or- + + Infection Reactivated +or- + + + Infection + Antibody Present - Antibody Absent Blood BLOOD SPECIMEN / Unknown 04/04/2017 3:22 PM FLASH RANGING CREWMEMBER 04/04/2017 Narrative Resulting Agency Comment [facility] [address] [facility] [id number] Tucker James DO LAB - CHEMISTRY ORDERABLES [facility] ACCOUNT BILL [address] [place] [address] * (ABNORMAL) CBC W AUTO DIFFERENTIAL (04/04/2017 3:22 PM FLASH RANGING CREWMEMBER) WBC 11.5(H) 3.4 - 10.8 x10E3/uL [facility] ACCOUNT BILL RBC 4.44 3.77 - 5.28 x10E6/uL [facility] ACCOUNT BILL Hemoglobin 13.1 11.1 - 15.9 g/dL [facility] ACCOUNT BILL Hematocrit 39.3 34.0 - 46.6 % [facility] ACCOUNT BILL MCV 89 79 - 97 fL [facility] ACCOUNT BILL MCH 29.5 26.6 - 33.0 pg [facility] ACCOUNT BILL MCHC 33.3 31.5 - 35.7 g/dL [facility] ACCOUNT BILL RDW 13.0 12.3 - 15.4 % [facility] ACCOUNT BILL Platelet Count 267 150 - 379 x10E3/uL [facility] ACCOUNT BILL Granulocytes % 63 Not Estab. % [facility] ACCOUNT BILL Lymphocytes % 25 Not Estab. % [facility] ACCOUNT BILL Monocytes % 11 Not Estab. % [facility] ACCOUNT BILL Eosinophils % 1 Not Estab. % [facility] ACCOUNT BILL Basophils % 0 Not Estab. % [facility] ACCOUNT BILL Immature Cells NOT NEEDED [facility] ACCOUNT BILL Comment:Ancillary determined the test is not needed Granulocytes Absolute 7.1(H) 1.4 - 7.0 x10E3/uL [facility] ACCOUNT BILL Lymphocytes Absolute 2.9 0.7 - 3.1 x10E3/uL [facility] ACCOUNT BILL Monocytes Absolute 1.3(H) 0.1 - 0.9 x10E3/uL [facility] ACCOUNT BILL Eosinophils Absolute 0.1 0.0 - 0.4 x10E3/uL [facility] ACCOUNT BILL Basophils Absolute 0.0 0.0 - 0.3 x10E3/uL [facility] ACCOUNT BILL Immature Granulocytes 0 Not Estab. % [facility] ACCOUNT BILL Immature Granulocytes Absolute 0.0 0.0 - 0.1 x10E3/uL [facility] ACCOUNT BILL nRBC NOT NEEDED [facility] ACCOUNT BILL Comment:Ancillary determined the test is not needed Comment Hematology NOT NEEDED [facility] ACCOUNT BILL Comment:Ancillary determined the test is not needed Blood BLOOD SPECIMEN / Unknown 04/04/2017 3:22 PM FLASH RANGING CREWMEMBER 04/04/2017 Narrative Resulting Agency Comment [facility] [address] [facility] [id number] Tucker James DO LAB - HEMATOLOG Y ORDERABLES [facility] ACCOUNT BILL [address] [place] [address] * COMPREHENSIVE METABOLIC PANEL (04/04/2017 3:22 PM FLASH RANGING CREWMEMBER) Glucose 70 65 - 99 mg/dL [facility] ACCOUNT BILL BUN 13 5 - 18 mg/dL [facility] ACCOUNT BILL Creatinine 0.68 0.49 - 0.90 mg/dL [facility] ACCOUNT BILL BUN/Creatinine Ratio 19 10 - 22 [facility] ACCOUNT BILL Sodium 142 134 - 144 mmol/L [facility] ACCOUNT BILL Potassium 4.7 3.5 - 5.2 mmol/L [facility] ACCOUNT BILL Chloride 103 96 - 106 mmol/L [facility] ACCOUNT BILL CO2 24 18 - 29 mmol/L [facility] ACCOUNT BILL Calcium 9.7 8.9 - 10.4 mg/dL [facility] ACCOUNT BILL Protein Total 6.7 6.0 - 8.5 g/dL [facility] ACCOUNT BILL Albumin 4.0 3.5 - 5.5 g/dL [facility] ACCOUNT BILL Globulin Total 2.7 1.5 - 4.5 g/dL [facility] ACCOUNT BILL Albumin/Globulin Ratio 1.5 1.2 - 2.2 [facility] ACCOUNT BILL Bilirubin Total <0.2 0.0 - 1.2 mg/dL [facility] ACCOUNT BILL Alkaline Phosphatase 95 62 - 149 IU/L [facility] ACCOUNT BILL AST 15 0 - 40 IU/L [facility] ACCOUNT BILL ALT 10 0 - 24 IU/L [facility] ACCOUNT BILL Blood BLOOD SPECIMEN / Unknown 04/04/2017 3:22 PM FLASH RANGING CREWMEMBER 04/04/2017 Narrative Resulting Agency Comment [facility] [address] [facility] [id number] Tucker James DO LAB - CHEMISTRY ORDERABLES [facility] ACCOUNT BILL [address] [place] [address] * STREP A SCREEN - POINT OF CARE (AMB) (04/04/2017 1:01 PM FLASH RANGING CREWMEMBER) Only the most recent of4 resultswithin the time period is included. Strep A Rapid POCT Negative Negative Strep A Internal Control Present Other ENTIRE THROAT (SURFACE REGION OF NECK) / Unknown 04/04/2017 1:01 PM FLASH RANGING CREWMEMBER Tucker James DO LAB - POINT OF CARE ORDERABLES * XR BONE AGE HAND AND WRIST (07/31/2010 12:49 PM CDT) Anatomical Region Laterality Modality Upper Extremity, Wrist / Hand Ra diographic Imaging 07/31/2010 1:01 PM CDT Impressions 07/31/2010 1:01 PM CDT Bone age is within 2 standard deviations of chronologic age. Narrative 07/31/2010 1:01 PM CDT EXAMINATION:Bone age dated July 31, 2010 12:49:38 PM . HISTORY: [age] year 9-month-old female with precocious puberty. Single AP view of the left hand and wrist were obtained for bone age determination. Based on the standards of Greulich and Kaushal the patient has a bone age of 9 years, 10 months. Given the patient's chronologic age of 9 years, 9 months, there is a standard deviation of 8.5 months. Procedure Note Hamilton Barrett - 07/31/2010 EXAMINATION:Bone age dated July 31, 2010 12:49:38 PM . HISTORY: [age] year 9-month-old female with precocious puberty. Single AP view of the left hand and wrist were obtained for bone age determination. Based on the standards of Greulich and Kaushal the patient has a bone age of 9 years, 10 months. Given the patient's chronologic age of 9 years, 9 months, there is a standard deviation of 8.5 months. IMPRESSION Bone age is within 2 standard deviations of chronologic age. Lainey Sánchez MD DIAGNOSTIC IMAGING O RDERABLES * (ABNORMAL) LIPID PROFILE (06/06/2010 9:26 AM CDT) Cholesterol 170(H) 100 - 169 mg/dL [facility] ACCOUNT BILL Triglycerides 50 0 - 149 mg/dL [facility] ACCOUNT BILL HDL Cholesterol 55 >39 mg/dL [facility] ACCOUNT BILL Comment: According to ATP-III Guidelines, HDL-C >59 mg/dL is considered a negative risk factor for CHD. VLDL Calculated 10 5 - 40 mg/dL [facility] ACCOUNT BILL LDL Calculated 105(H) 0 - 99 mg/dL [facility] ACCOUNT BILL BLOOD SPECIMEN / Unknown 06/06/2010 9:26 AM CDT 06/06/2010 6:12 PM CDT Narrative Resulting Agency Comment [address] [id number] Lainey Sánchez MD LAB - CHEMISTRY KATY SANCHEZ Performing Organization Address [facility] Co de Phone Number [facility] ACCOUNT BILL * TESTOSTERONE TOTAL (06/06/2010 9:24 AM CDT) Testosterone <3 ng/dL [facility] ACCOUNT BILL Comment: FEMALE CARLA STAGE 1 <3 - 6 2 <3 - 10 3 <3 - 24 4 <3 - 27 5 5 - 38 [facility] now offers an enhanced accuracy testosterone test specifically designed for lower testosterone levels (test #885246; Testosterone, Total, Women, Children and Hypogonadal Males, LC/MS-MS). CDC and several academic societies recommend improved testosterone tests for women, children, and hypogonadal males and should be performed using test #719482. BLOOD SPECIMEN / Unknown 06/06/2010 9:24 AM CDT 06/06/2010 6:13 PM CDT Narrative Resulting Agency Comment [facility] [address] [facility] [phone] Lainey Sánchez MD LAB - CHEMISTRY KATY SANCHEZ Performing Organization Address [facility] Co de Phone Number [facility] ACCOUNT BILL * ESTRADIOL (06/06/2010 9:24 AM CDT) Estradiol 7.4 pg/mL [facility] ACCOUNT BILL Comment: Adult Female: Follicular phase 12.5 - 166.0 Ovulation phase 85.8 - 498.0 Luteal phase 43.8 - 211.0 Postmenopausal <6.0 - 54.7 1st trimester 215.0 - >4300.0 Girls (1-10 years) 6.0 - 27.0 Merly ECLIA methodology BLOOD SPECIMEN / Unknown 06/06/2010 9:24 AM CDT 06/06/2010 6:13 PM CDT Narrative Resulting Agency Comment [facility] [place] [address] [facility] [phone] Lainey Sánchez MD LAB - CHEMISTRY KATY Arauz Organization Address City/State/ZIP Co de Phone Number [facility] ACCOUNT BILL * FSH + LH PANEL (06/06/2010 9:24 AM CDT) LH 0.1 mIU/mL [facility] ACCOUNT BILL Comment: <24 hours <0.2 - 1.0 1 day <0.2 - 0.8 2 days <0.2 - 0.6 3 days <0.2 - 2.7 4 days <0.2 - 1.7 5 days <0.2 - 3.1 6 days 0.4 - 6.4 7 days <0.2 - 5.6 8 - 30 days <0.2 - 7.8 1 - 12 month <0.2 - 0.4 1 - 4 years <0.2 - 0.5 5 - 9 years <0.2 - 3.1 10 - 12 years <0.2 - 11.9 13 - 16 years 0.5 - 41.7 . Adult Female: Follicular phase 2.4 - 12.6 Ovulation phase 14.0 - 95.6 Luteal phase 1.0 - 11.4 FSH 1.8 mIU/mL [facility] ACCOUNT BILL Comment: <24 hours <0.2 - 0.8 1 day <0.2 - 0.8 2 days <0.2 - 0.8 3 days <0.2 - 2.4 4 days <0.2 - 2.3 5 days <0.2 - 3.4 6 days <0.2 - 4.5 7 days 0.2 - 21.4 8 - 30 days <0.2 - 22.2 1 - 12 months Not Estab. 1 - 4 years 0.2 - 11.1 5 - 9 years 0.3 - 11.1 10 - 12 years 2.1 - 11.1 13 - 16 years 1.6 - 17.0 . Adult Female: Follicular phase 3.5 - 12.5 Ovulation phase 4.7 - 21.5 Luteal phase 1.7 - 7.7 BLOOD SPECIMEN / Unknown 06/06/2010 9:24 AM CDT 06/06/2010 6:13 PM CDT Narrative Resulting Agency Comment [facility] [address] [facility] [id number] Lainey Sánchez MD LAB - CHEMISTRY ORDE RABLES [facility] ACCOUNT BILL * CULTURE THROAT (01/10/2010 10:56 AM CDT) Upper Respiratory Culture Final report [facility] ACCOUNT BILL Result 1 [facility] ACCOUNT BILL Comment:Routine respiratory nicki ENTIRE PHARYNX / Unknown 01/10/2010 10:56 AM CDT 01/10/2010 5:38 PM CDT Narrative Resulting Agency Comment [facility] [address] [facility] [id number] Marita Rubalcava MD LAB - MICROBIOLOGY O RDERABLES Performing Organization Address City/[facility]/ZIP Co de Phone Number [facility] ACCOUNT BILL * XR AIRWAY LAT (12/04/2009) Anatomical Region Laterality Modality Head Other Lainey Sánchez MD DIAGNOSTIC IMAGING O RDERABLES * GROSS + MICRO EXAM (06/10/2004 9:30 AM CDT) Result CASE NUMBER [id number] [facility] PATH REPORT Comment: ORDERING PHYSICIAN LIO CESPEDES SPECIMEN TYPE Hernia Sac-Ventral CLINICAL HISTORY The patient is a 3-year-old girl with a ventral hernia who underwent repair of the same. GROSS DESCRIPTION The specimen, labeled with the patient's name and ventral hernia sac, is received fresh for gross and microscopic examination and consists of a 1.0 x 0.5 x 0.3 cm fragment of shaggy, pink-amor, soft tissue submitted in toto as A . (CT/pg) MICROSCOPIC DESCRIPTION (1 H/E) (CSA/lw) DIAGNOSIS DIAGNOSIS VENTRAL HERNIA SAC - FIBROUS CONNECTIVE TISSUE CONSISTENT WITH HERNIA SAC. This case has been personally reviewed and interpreted by the attending (teaching) pathologist. [employer] MARIA ELENA HENSON PATHOLOGIST Nicolas Thomas M.D. ELECTRONICALLY MARILYN Nicolas Thomas MISCELLANEOUS SAMPLES / Unknown 06/10/2004 9:30 AM CDT 06/10/2004 10:33 AM CDT Historical Provider LAB - PATHOLOGY/C YTOLOGY ORDERABLES [facility] PATH REPORT Care Teams Shift Leader Relationship Specialty Start Date End Date Matt Sun MD [address] [place] [address] PCP - General Family Medicine 09/20/22
[2024-05-22 09:57] LABS: Thyroid Stimulating Hormone < 0.015 uIU/mL (0.465-4.680); Total Triiodothyronine (T3) 2.04 NG/ML (0.97-1.69)
[2024-05-22 10:18] LABS: Free T4 Free Thyroxine 1.79 ng/dL (0.78-2.19)
== END 2024-05-22 07:59 | disposition home or self-care (01) ==
LOC: ANHLAB 07:59
PROVIDERS: PCP Family Medicine; Visit Provider Internal Medicine
DX: E05.00 Thyrotoxicosis with diffuse goiter without thyrotoxic crisis or storm (principal)
CPT/HCPCS: 36415; 84439; 84443; 84480

== ENCOUNTER 2024-06-19 17:25 | Outpatient (CLI) | payer OTHER, SELFPAY ==
--- OUTSIDE RECORDS SUMMARY | 2024-06-19 17:29 | XMS_ITS | Clinical Summary ---
Author Organization [facility] [employer] Address [address] [place] [address] Care Team Providers Care Loan Officer Assistant Name Role Phone Matt Sun MD Primary Care Provider [phone] Source Comments [facility],non-owned Affiliates and Associated Physician Practices is amultiple site organization consisting of ambulatory clinics and hospital sitesin [place], [place], [place] and [place]. This disclosure is being madepursuant to the Care Everywhere program and may not contain all information available regarding this patient. Last updated 17.[employer] Allergies No known active allergies Medications * Be aware that medications may not be up to date on this document. Alwaysverify current medications with the patient. Benzoyl Peroxide 2.5 % 1 Each by Apply externally route 2 times daily 21 g 1 9 Active Active Problems Problem Noted Date Diagnosed Date Anxiety with depression 04/28/2018 Resolved Problems Problem Noted Date Diagnosed Date Resolved Date BMI (body mass index), pedia tric, 95-99% for age 0810/28/2017 12/12/2019 BMI (body mass index), pedia tric, 85% to less than 95% for age 0810/25/2016 10/28/2017 Immunizations Immunization Administration Dates Next Due DTaP VACCINE IM (6wk-6yrs) 08/15/2007,,05/02/2003,03/04,2002 HEP A PEDS 2 DOSE 08/15/2007,11/01/2006 HEP B VACCINE, PED/ADOL 05/02/2003,03/04,2002,10/29 HIB BOOSTER 03/20/2004, 4,03/04/2003,12/31 Human Papilloma Virus Nineva lent Vaccine 10/23/2016,12/01/2015,09/22/2015 MENINGOCOCCAL ACWY (MCV4P) VAC IM 12/11/2019, MMR 08/15/2007,11/01/2003 PNEUMOCOCCAL CONJ, PEDS 11/01/2003,05/02,03/04/2003,12/31 POLIO [...] of Binge Drinking Not on file 06/05 Comments No Sex and Gender Information Value Date Recorded Sex Assigned at Not on file Legal Sex Female 6:41 AM DISBURSING AGENT Gender Identity Not on file Sexual Orientation [...] 08/15/2007, 04/27/2004, Additional history exists COVID-19 VACCINE (1 2023-2 5 season) 2023 DEPRESSION SCREENING 03/07/2024 INFLUENZA VACCINE (Season Ended) 2024 ZOSTER VACCINE (1 of 2) 2052 HEPATITIS [...] car Lifestyle On track( 020 3:21 PM DISBURSING AGENT) Stoney Barbosa, RN Insurance , [address] [place] [address] Care Teams Loan Officer Assistant Relationship Specialty Start Date End Date Matt Sun MD [address] [place] [id number] PCP - General Family Medicine 09/20/22
--- OUTSIDE RECORDS SUMMARY | 2024-06-19 17:29 | XMS_ITS | Clinical Summary ---
Author Organization [facility] Address [address] [place] [address] Care Team Providers Care Phlebotomy Services Representative Name Role Phone Mendy Sanchez MD Unavailable [phone] Perry Rice MD Unavailable [phone] Zoya Hahn NP Primary Care Provider [phone] Jerald Mason MD Unavailable [phone] Allergies No known active allergies Medications atenoloL (TENORMIN) 25 mg tablet 3 Active methIMAzole (TAPAZOLE) 10 mg tablet Take 4 tablets (40 mg total) by mouth daily 3 Active PARoxetine (PAXIL) 20 mg tablet TAKE 1 TABLET BY MOUTH EVERY DAY IN THE MORNING FOR 90 DAYS 3 06/08/19 25 Discontinu ed(Therapy completed) selenium 200 mcg tablet Take 0.5 tablets (100 mcg total) by mouth daily 3 06/08/19 25 Discontinu ed(Therapy completed) atenoloL (TENORMIN) 50 mg tablet TAKE 1 TABLET ORALLY DAILY HOLD IF SYSTOLIC BLOOD PRESSURE IS LESS THAN 100 OR HR IS LESS THAN 50 4 06/08/19 25 Discontinu ed(Therapy completed) amoxicillin (AMOXIL) 875 mg tablet TAKE 1 TABLET BY MOUTH TWICE A DAY UNTILL GONE 5 06/08/19 25 Discontinu ed(Therapy completed) Active Problems Problem Noted Date Diagnosed Date Annual physical exam 06/07/2024 Assessment & Plan (06/10/2024 1:01 PM CDT): -Recommended: Healthy diet. Avoiding junk food/fast food. -30 minutes of exercise most days of the week. Increase to 45 minutes for weight loss. Health Maintenance reviewed - utd. -Influenza vaccine every year Recommend: -There are no preventive care reminders to display for this patient. 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 Managed by endocrinology. Anxiety with depression 04/28/2018 Assessment & Plan (06/10/2024 1:02 PM CDT): Improved. Going to counseling. May reach out as needed. 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 Discharge Disposition: Discharge to home or self care 04/10/2024 6:28 PM NCQA SPECIALIST - 04/10/2024 11:59 PM NCQA SPECIALIST Hospital Encounter [address] [address] Influenza A Discharge Disposition: Discharge to home or self care 04/10/2024 6:00 PM NCQA SPECIALIST Office Visit [facility] Convenient Care at [address] [phone] Jeannette Mays PA Influenza A (Primary Dx) 04/10/2024 11:15 AM NCQA SPECIALIST Lab [facility] at [address] [address] 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 03/26/2024 11:00 AM NCQA SPECIALIST Office Visit [facility] Medical Office Building 2 Radiation Oncology [address] [place] [address] Mendy Sanchez MD 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 from Last 3 Months Immunizations Immunization Administration Dates Next Due DTaP 08/15/2007, 5,05/02/2003,03/04/2003,1 HPV9 10/23/2016,12/01/2015,09/22/2015 Hep A, Pediatric 08/15/2007,11/01/2006 Hep B, Unspecified 05/02/2003,03/04/2003, 003,2002 HiB 03/20/2004,05/31/2003,03/04/2003 ,2002 IPV 08/15/2007,05/02/2003,03/04/2003 ,2002 MMR 08/15/2007,11/01/2003 Meningococcal MCV4P (Menactra) 12/11/2019,2015 Tdap 09/16/2023,08/23/2013 Varicella 11/01/2006,03/20/2004 Surgical History Surgery Date Site/Laterality Comments TONSILLECTOMY [...] Types Packs/Day Years Used Date Smoking Tobacco: Former Vaping Q uit: 2023 Smokeless Tobacco: Never Tobacco Cessation:Counseling Given: Not Answered AUDIT-C Answer Date Recorded Q1: How often do you have a drink containing alc ohol? Monthly or less 06/07/2024 Q2: How many drinks containi ng alcohol do you have on a typical day when you are drinking? 1 or 2 06/07/2024 Q3: How often do you have si x or more drinks on one occasion? Never 06/07/2024 PHQ-2 Answer Date Recorded PHQ-2 Total Score (If total score is 3 or more points, staff should administer the PHQ-9) 0 06/07/2024 Comments Unknown Sex and Gender Information Value Date Recorded Sex Assigned at Not on file Legal Sex Female 11:51 AM CDT Gender Identity Not on file Sexual Orientation Not on file Obstetrics History Last Filed Vital Signs Vital Sign Reading Time Taken Comments Blood Pressure 116/86 06/07/2024 3:06 PM CDT Pulse 67 06/07/2024 3:06 PM CDT Temperature 36.7 C (98.1 F) 06/07/2024 3:06 PM CDT Respiratory Rate 18 06/07/2024 3:06 PM CDT Oxygen Saturation 98% 06/07/2024 3:06 PM CDT Inhaled Oxygen Concentration - - Weight 90.4 kg (199 lb 3.2 oz) 06/07/2024 3:06 P M CDT Height 167.6 cm (5' 6 ) 06/07/2024 3:06 PM CDT Body Mass Index 32.15 06/07/2024 3:06 PM CDT Plan of Treatment Health Maintenance Due Date Last Done Comments Cervical Cancer Screening 2002 Hepatitis C Screening 2002 Meningococcal B Vaccine (1 of 2 - Standard) 2018 Influenza Vaccine (Season Ended) 2024 Depression Screening 06/07/2025 06/07/2024 Regular Well Visit/Exam 18-64 06/07/2025 06/07/2024 DTaP/Tdap/Td Vaccine (8 - Td or Tdap) 09/15/2033 09/16/2023, 08/23/2013, 08/15/2007, Additional history exists Hepatitis B Screening Completed 05/02/2003 , 03/04/2003, 2002, Additional history exists Varicella Vaccines Completed 11/01/2006, 03/20/2004 HPV Vaccines Completed 10/23/2016, 11/06, 09/22/2015 Meningococcal Vaccine Completed 12/11/2019, 016 Pneumococcal vaccine <65 Aged Out No longer eligible based on patient's age to complete this topic Procedures Procedure Name Priority Date/Time Associated Diagnosis Comments NM CANCER ABLATION I-131 THERAPY Schedule Routine, Read Routine (OP Routine) 04/11/2024 11:01 AM NCQA SPECIALIST 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 Please refer to the physician's procedure / OR operative note. us Mendy Sanchez MD IMG NM PROCEDURES Final R esult RAD_CLARIO_MHB_MHE * Throat culture Throat (04/10/2024 6:28 PM NCQA SPECIALIST) Report Final Report: No growth of pathogens. Comment:Testing performed by : [facility], 1 [facility], [place]., [address] Throat 04/10/2024 6:28 PM NCQA SPECIALIST 04/11/2024 12:09 AM NCQA SPECIALIST Narrative CERNER CH - 04/11/2024 6:38 PM NCQA SPECIALIST Testing performed by [facility] Microbiology Laboratory ([phone]). Jeannette ESTRADA LAB MICROBIOLOGY - GENER AL ORDERABLES Final Result MAHENDRA [place] [address] [place] [address] * POCT rapid strep A (04/10/2024 6:20 PM NCQA SPECIALIST) [facility] Rapid Strep A, POC Negative Negative Swab 04/10/2024 6:20 PM NCQA SPECIALIST Jeannette ESTRADA POINT OF CARE TEST ORDER FERNANDO Final Result * (ABNORMAL) POC Influenza A/B, COVID-19 antigen (04/10/2024 6:15 PM NCQA SPECIALIST) [facility] Influenza A Ag, POC Positive(A) Negative [facility] Influenza B Ag, POC Negative Negative [facility] COVID-19 Ag POC Presumptive Negative Presumptive Negative, Invalid [facility] Nasal 04/10/2024 6:15 PM NCQA SPECIALIST Jeannette ESTRADA POINT OF CARE TEST ORDER FERNANDO Final Result Performing Organization Address City[facility] Co de Phone Number [facility] [address] [place] [address] * hCG, blood, quantitative (04/10/2024 11:17 AM NCQA SPECIALIST) [facility] hCG, quant <5.0 0.0 - 5.0 IUnits/L Comment: Interpretive Data Male: < 5 IU/L Non- premenopausal Female: <5 IU/L The Merly hCG Beta Quant assay procedure was used. Results from different manufacturers or methods may not be comparable. Serial testing should be performed using the same method. Interpretive Data was last revised on 2023 Testing performed by: [facility], [address] [place] [address]., [id number] Blood 04/10/2024 11:1 7 AM NCQA SPECIALIST 04/10/2024 11:44 AM NCQA SPECIALIST us Mendy Sanchez MD LAB BLOOD ORDERABLES Edit ed Result - Final MAHENDRA MH [address] [facility] Department [place] [address] from Last 3 Months Insurance [facility]O Address: [address] [place] [address] [facility]/PPO Address: [address] [place] [address] Care Teams Phlebotomy Services Representative Relationship Specialty Start Date End Date Zoya Hahn NP 2121 [facility] 130 [place] [address] PCP - General Family Medicine 06/07/24 Mendy Sanchez MD 1418 [facility] 160 [place] [address] Radiation Oncologist Radiation Oncology 03/01/24 Perry Rice MD [address] [facility] 1 [place], [place] [id number] Consulting Physician Internal Medicine 03/01/24 Jerald Mason MD 6810 [facility] 162 [facility] 105 [place] [address] Referring Physician Obstetrics and Gynecology 06/07/24
--- OUTSIDE RECORDS SUMMARY | 2024-06-19 17:29 | XMS_ITS | Referral Summary ---
Author Organization [facility] Address [address] [place] [address] Care Team Providers Care Broke Beater Name Role Phone Mendy Sanchez MD Unavailable [phone] Perry Rice MD Unavailable [phone] Zoya Hahn NP Primary Care Provider [phone] Jerald Mason MD Unavailable [phone] Encounters Date Type Department Care Team Description 06/07/2024 3:00 PM CDT Office Visit [facility] Primary Care at [address] [address] Zoya Hahn NP Annual physical exam (Primary Dx); Graves' disease; Anxiety with depression 04/11/2024 10:21 AM ROOFING SUBCONTRACTOR - 04/11/2024 11:59 PM ROOFING SUBCONTRACTOR Hospital Encounter [facility] [address] [address] 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 Discharge Disposition: Discharge to home or self care 04/10/2024 6:28 PM ROOFING SUBCONTRACTOR - 04/10/2024 11:59 PM ROOFING SUBCONTRACTOR Hospital Encounter [address] [address] Influenza A Discharge Disposition: Discharge to home or self care 04/10/2024 6:00 PM ROOFING SUBCONTRACTOR Office Visit [facility] Convenient Care at [address] [address] Jeannette Mays PA Influenza A (Primary Dx) 04/10/2024 11:15 AM ROOFING SUBCONTRACTOR Lab [facility] Cancer Center at [address] [address] 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 May reach out as needed. Immunizations Immunization Administration Dates Next Due DTaP 08/15/2007, 5,05/02/2003,03/04/2003,1 HPV9 10/23/2016,12/01/2015,09/22/2015 Hep A, Pediatric 08/15/2007,11/01/2006 Hep B, Unspecified 05/02/2003,03/04/2003, 003,2002 HiB 03/20/2004,05/31/2003,03/04/2003 ,2002 IPV 08/15/2007,05/02/2003,03/04/2003 ,2002 MMR 08/15/2007,11/01/2003 Meningococcal MCV4P (Menactra) 12/11/2019,2015 Tdap 09/16/2023,08/23/2013 Varicella 11/01/2006,03/20/2004 Social History Tobacco Use Types Packs/Day [...] 06/07/2024 3:06 PM CDT Plan of Treatment Not on file Procedures Procedure Name Priority Date/Time Associated Diagnosis Comments NM CANCER ABLATION I-131 THERAPY Schedule Routine, Read Routine (OP Routine) 04/11/2024 11:01 AM ROOFING SUBCONTRACTOR 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 THROAT CULTURE Routine 04/10/2024 6:28 PM ROOFING SUBCONTRACTOR Influenza A POCT RAPID STREP Routine 04/10/2024 6:20 PM ROOFING SUBCONTRACTOR Influenza A POC INFLUENZA A/B, COVID-19 ANTIGEN Routine 04/10/2024 6:15 PM ROOFING SUBCONTRACTOR Influenza A HCG, BLOOD, QUANTITATIVE Routine 04/10/2024 11:17 AM ROOFING SUBCONTRACTOR 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 Please refer to the physician's procedure / OR operative note. us Mendy STEWART NM PROCEDURES Final R esult RAD_CLARIO_MHB_MHE * Throat culture Throat (04/10/2024 6:28 PM ROOFING SUBCONTRACTOR) Report Final Report: No growth of pathogens. Comment:Testing performed by : [facility], 1 [place]., [address] Throat 04/10/2024 6:28 PM ROOFING SUBCONTRACTOR 04/11/2024 12:09 AM ROOFING SUBCONTRACTOR Narrative MAHENDRA - 04/11/2024 6:38 PM ROOFING SUBCONTRACTOR Testing performed by [facility] Microbiology Laboratory ([phone]). Jeannette ESTRADA LAB MICROBIOLOGY - GENER AL ORDERABLES Final Result [facility] [address] Department [place] [address] * POCT rapid strep A (04/10/2024 6:20 PM ROOFING SUBCONTRACTOR) [facility] Rapid Strep A, POC Negative Negative Swab 04/10/2024 6:20 PM ROOFING SUBCONTRACTOR Jeannette ESTRADA POINT OF CARE TEST ORDER FERNANDO Final Result * (ABNORMAL) POC Influenza A/B, COVID-19 antigen (04/10/2024 6:15 PM ROOFING SUBCONTRACTOR) [facility] Influenza A Ag, POC Positive(A) Negative [facility] Influenza B Ag, POC Negative Negative [facility] COVID-19 Ag POC Presumptive Negative Presumptive Negative, Invalid [facility] Nasal 04/10/2024 6:15 PM ROOFING SUBCONTRACTOR Jeannette ESTRADA POINT OF CARE TEST ORDER FERNANDO Final Result [facility] [address] [place] [address], [facility] * hCG, blood, quantitative (04/10/2024 11:17 AM ROOFING SUBCONTRACTOR) [facility] hCG, quant <5.0 0.0 - 5.0 IUnits/L Comment: Interpretive Data Male: < 5 IU/L Non- premenopausal Female: <5 IU/L The Merly hCG Beta Quant assay procedure was used. Results from different manufacturers or methods may not be comparable. Serial testing should be performed using the same method. Interpretive Data was last revised on 2023 Testing performed by: [facility], [address] [place] [address]., [address] Blood 04/10/2024 11:1 7 AM ROOFING SUBCONTRACTOR 04/10/2024 11:44 AM ROOFING SUBCONTRACTOR us Mendy Sanchez MD LAB BLOOD ORDERABLES Edit ed Result - Final MAHENDRA 45[address] [facility] [place] [address] from Last 3 Months Insurance [facility]O Address: [facility] [id number] [place] [address] [facility] Address: [facility] [id number] [place] [address] Care Teams Broke Beater Relationship Specialty Start Date End Date Zoya Hahn NP 2121 [facility] 130 [place], [place] [phone] PCP - General Family Medicine 06/07/24 Mendy Sanchez MD 1418 [facility] 160 [place] [address] Radiation Oncologist Radiation Oncology 03/01/24 Perry Rice MD [address] [facility] [facility] 1 [place] [address] Consulting Physician Internal Medicine 03/01/24 Jerald Mason MD 6810 [facility] 162 [address] [place] [address] Referring Physician Obstetrics and Gynecology 06/07/24
[2024-06-19 17:57] LABS: Alanine Aminotransferase 20 U/L (6-35); Anion Gap 9 mmol/L (4-12); Aspartate Amino Transferase 22 U/L (14-36); Bilirubin,Total 0.4 mg/dL (0.2-1.3); Blood Urea Nitrogen 16 mg/dL (7-17); Calcium 9.1 mg/dL (8.4-10.2); Carbon Dioxide 24 mmol/L (22-30); Chloride 105 mmol/L (98-107); Estimated Glomerular Filt Rate > 60; Glucose 88 mg/dL (65-110); Potassium 3.7 mmol/L (3.4-5.0); Sodium 138 mmol/L (137-145)
[2024-06-19 17:58] LABS: Albumin Level 4.4 g/dL (3.5-5.1); Alkaline Phosphatase 96 U/L (38-126)
[2024-06-19 18:28] LABS: Thyroid Stimulating Hormone < 0.015 uIU/mL (0.465-4.680); Total Triiodothyronine (T3) 2.87 NG/ML (0.97-1.69)
[2024-06-19 18:43] LABS: Free T4 Free Thyroxine 2.01 ng/dL (0.78-2.19)
== END 2024-06-19 17:26 | disposition home or self-care (01) ==
LOC: ANHLAB 17:27
PROVIDERS: PCP Nurse Practitioner Family; Visit Provider Internal Medicine
DX: E05.00 Thyrotoxicosis with diffuse goiter without thyrotoxic crisis or storm (principal)
CPT/HCPCS: 36415; 80053; 84439; 84443; 84480

== ENCOUNTER 2024-07-19 15:32 | Outpatient (CLI) | payer OTHER, SELFPAY ==
--- OUTSIDE RECORDS SUMMARY | 2024-07-19 15:35 | XMS_ITS | Referral Summary ---
Author Organization [facility] Address [address] [place] [address] Care Team Providers Care Data Acquisition Technician Name Role Phone Mendy Sanchez MD Unavailable [phone] Perry Rice MD Unavailable [phone] Zoya Hahn NP Primary Care Provider [phone] Jerald Mason MD Unavailable [phone] Encounters Date Type Department Care Team Description 06/07/2024 3:00 PM CDT Office Visit [facility] Primary Care at [address] [address] Zoya Hahn NP Annual physical exam (Primary Dx); Graves' disease; Anxiety with depression from Last 3 Months Allergies No known active allergies Medications atenoloL (TENORMIN) 25 mg tablet 08/16/2022 Active methIMAzole (TAPAZOLE) 10 mg tablet Take 4 tablets (40 mg total) by mouth daily 09/03/2022 Active Active Problems Problem Noted Date Diagnosed [...] CDT Plan of Treatment Not on file Insurance [facility] NEXUS [facility] N[facility] Care Teams Data Acquisition Technician Relationship Specialty Start Date End Date Zoya Hahn NP 212 [facility] 130 [place], [place] [id number] PCP - General Family Medicine 06/07/24 Mendy Sanchez MD [address] [place] [address] 160 [place] [address] Radiation Oncologist Radiation Oncology 03/01/24 Perry Rice MD [address] [facility] 1 [place] [address] Consulting Physician Internal Medicine 03/01/24 Jerald Mason MD [address] [place] [address] Referring Physician Obstetrics and Gynecology 06/07/24
--- OUTSIDE RECORDS SUMMARY | 2024-07-19 15:35 | XMS_ITS | Clinical Summary ---
Author Organization [facility] Address [address] [place] [address] Care Team Providers Care Gifts Officer Name Role Phone Mendy Sanchez MD Unavailable [phone] Perry Rice MD Unavailable [phone] Zoya Hahn NP Primary Care Provider [phone] Jerald Mason MD Unavailable Allergies No known active allergies Medications atenoloL [...] [facility] Primary Care at [address] [address] Zoya Hahn NP Annual physical exam (Primary Dx); Graves' disease; Anxiety with depression from Last 3 Months Immunizations Immunization Administration [...] on patient's age to complete this topic Insurance [facility] NEXUS [facility] NEXUS Care Teams Gifts Officer Relationship Specialty Start Date End Date Zoya Hahn NP 2121 [facility] 130 [place] [address] PCP - General Family Medicine 06/07/24 Mendy Sanchez MD 1418 [facility] 160 [place], [place] [address] Radiation Oncologist Radiation Oncology 03/01/24 Perry Rice MD [address] [facility] 1 [place] [address] Consulting Physician Internal Medicine 03/01/24 Jerald Mason MD 6810 [facility] 162 [facility] 105 [place], [place] [address] Referring Physician Obstetrics and Gynecology 06/07/24
--- OUTSIDE RECORDS SUMMARY | 2024-07-19 15:35 | XMS_ITS | Clinical Summary ---
Author Organization [facility] Address [address] [place] [address] Care Team Providers Care Air And Missile Defense Crewmember Name Role Phone Matt Sun MD Primary Care Provider [phone] Source Comments [facility],non-owned Affiliates and Associated Physician Practices is amultiple site organization consisting of ambulatory clinics and hospital sitesin [place], [place], [place] and [place]. This disclosure is being madepursuant to the Care Everywhere program and may not contain all information available regarding this patient. Last updated 17.[employer] [facility] Allergies No known active allergies Medications * [...] on file Legal Sex Female 6:41 AM COLORECTAL SURGEON Gender Identity Not on file Sexual Orientation [...] car Lifestyle On track( 020 3:21 PM COLORECTAL SURGEON) Stoney Barbosa, RN Insurance , [address] [place] [address] Care Teams Air And Missile Defense Crewmember Relationship Specialty Start Date End Date Matt Sun MD [address] [place] [address] PCP - General Family Medicine 09/20/22
[2024-07-19 17:21] LABS: Thyroid Stimulating Hormone < 0.015 uIU/mL (0.465-4.680)
[2024-07-19 17:24] LABS: Free T4 Free Thyroxine 1.82 ng/dL (0.78-2.19)
== END 2024-07-19 15:33 | disposition home or self-care (01) ==
LOC: ANHLAB 15:33
PROVIDERS: PCP Nurse Practitioner Family; Visit Provider Internal Medicine
DX: E05.90 Thyrotoxicosis, unspecified without thyrotoxic crisis or storm (principal); E05.00 Thyrotoxicosis with diffuse goiter without thyrotoxic crisis or storm; E04.9 Nontoxic goiter, unspecified
CPT/HCPCS: 36415; 84439; 84443; 84480

== ENCOUNTER 2024-08-28 17:25 | Outpatient (CLI) | payer OTHER, SELFPAY ==
[2024-08-28 18:15] LABS: Free T4 Free Thyroxine 0.49 ng/dL (0.78-2.19)
[2024-08-28 18:30] LABS: Thyroid Stimulating Hormone < 0.015 uIU/mL (0.465-4.680); Total Triiodothyronine (T3) 1.24 NG/ML (0.82-1.58)
== END 2024-08-28 17:26 | disposition home or self-care (01) ==
LOC: ANHLAB 17:26
PROVIDERS: PCP Nurse Practitioner Family; Visit Provider Internal Medicine
DX: E05.90 Thyrotoxicosis, unspecified without thyrotoxic crisis or storm (principal); E05.00 Thyrotoxicosis with diffuse goiter without thyrotoxic crisis or storm; E04.9 Nontoxic goiter, unspecified
CPT/HCPCS: 36415; 84439; 84443; 84480

== ENCOUNTER 2024-11-07 16:29 | Outpatient (CLI) | payer OTHER, SELFPAY ==
--- OUTSIDE RECORDS SUMMARY | 2024-11-07 17:13 | XMS_ITS | Clinical Summary ---
Author Organization [facility] Address [address] [place] [address] Care Team Providers Care Senior Pensions Administrator Name Role Phone Mendy Sanchez MD Unavailable [phone] Perry Rice MD Unavailable [phone] Zoya Hahn NP Primary Care Provider [phone] Jerald Mason MD Unavailable [phone] Allergies No known active allergies Medications atenoloL [...] P M CDT Height 167.6 cm (5' 6) 06/07/2024 3:06 PM CDT Body Mass Index 32.15 06/07/2024 3:06 PM CDT Plan of Treatment Health Maintenance Due Date Last Done Comments Cervical Cancer Screening 2002 Hepatitis C Screening 2002 Meningococcal B Vaccine (1 of 2 - Standard) 2018 Influenza Vaccine (#1) 2024 Depression Screening 06/07/2025 06/07/2024 Regular Well Visit/Exam 18-64 06/07/2025 06/07/2024 DTaP/Tdap/Td Vaccine (8 - Td or Tdap) 09/15/2033 09/16/2023, 08/23/2013, 08/15/2007, Additional history exists Hepatitis B Screening Completed 05/02/2003 , 03/04/2003, 2002, Additional history exists Varicella Vaccines Completed 11/01/2006, 03/20/2004 HPV Vaccines Completed 10/23/2016, 11/06, 09/22/2015 Pneumococcal vaccine <65 Aged Out No longer eligible based on patient's age to complete this topic Insurance [facility] NEXUS [facility] N[facility] Care Teams Senior Pensions Administrator Relationship Specialty Start Date End Date Zoya Hahn NP [address] [place] [address] 130 [place], [place] [phone] PCP - General Family Medicine 06/07/24 Mendy Sanchez MD [address] [place] [address] Radiation Oncologist Radiation Oncology 03/01/24 Perry Rice MD [address] [facility] 1 [place] [address] Consulting Physician Internal Medicine 03/01/24 Jerald Mason MD 6810 [facility] 162 [facility] 105 [place] [address] Referring Physician Obstetrics and Gynecology 06/07/24
--- OUTSIDE RECORDS SUMMARY | 2024-11-07 17:13 | XMS_ITS | Clinical Summary ---
Author Organization [facility] Address [address] [address] Care Team Providers Care Tube Heater Name Role Phone Matt Sun MD Primary Care Provider [phone] Source Comments [facility],non-owned Affiliates and Associated Physician Practices is amultiple site organization consisting of ambulatory clinics and hospital sitesin [place], [place], [place] and [place]. This disclosure is being madepursuant to the Care Everywhere program and may not contain all information available regarding this patient. Last updated 17.[facility] Allergies No known active allergies Medications * [...] on file Legal Sex Female 6:41 AM TELESCOPE REPAIRER Gender Identity Not on file Sexual Orientation [...] 10:33 AM CDT Height 169.5 cm (5' 6.75) 12/11/2019 10:33 AM C DT Body Mass Index 26.19 12/11/2019 10:33 AM CDT Plan of Treatment Health Maintenance Due Date Last Done Comments HIV SCREENING 2017 CHLAMYDIA/GONORRHEA SCREENING 2018 MENINGOCOCCAL (Group B) VACC INE SHARED DECISION-MAKING (1 of 2 - Standard) 2018 HEPATITIS C SCREENING 10/24/2020 DTAP/TDAP/TD VACCINES (7 - T d or Tdap) 08/24/2023 08/23/2013, 08/15/2007, 04/27/2004, Additional history exists PAP SMEAR 10/30/2023 COVID-19 VACCINE (1 - 2023-2 5 season) 2023 DEPRESSION SCREENING 03/07/2024 INFLUENZA VACCINE (#1) 2024 ZOSTER VACCINE (1 of 2) 2052 [...] car Lifestyle On track( 020 3:21 PM TELESCOPE REPAIRER) Stoney Barbosa, RN Insurance Care Teams Tube Heater Relationship Specialty Start Date End Date Matt Sun MD [address] [place] [id number] PCP - General Family Medicine 09/20/22
[2024-11-07 17:18] LABS: Alanine Aminotransferase 21 U/L (6-35); Albumin Level 4.0 g/dL (3.5-5.1); Alkaline Phosphatase 84 U/L (38-126); Anion Gap 6 mmol/L (4-12); Aspartate Amino Transferase 24 U/L (14-36); Bilirubin,Total 0.3 mg/dL (0.2-1.3); Blood Urea Nitrogen 13 mg/dL (7-17); Calcium 9.6 mg/dL (8.4-10.2); Carbon Dioxide 26 mmol/L (22-30); Chloride 105 mmol/L (98-107); Estimated Glomerular Filt Rate > 60; Glucose 100 mg/dL (65-110); Potassium 3.7 mmol/L (3.4-5.0); Sodium 137 mmol/L (137-145); Total Protein 7.2 g/dL (6.3-8.2)
[2024-11-07 17:41] LABS: Free T4 Free Thyroxine 1.95 ng/dL (0.78-2.19)
[2024-11-07 17:49] LABS: Thyroid Stimulating Hormone < 0.015 uIU/mL (0.465-4.680); Total Triiodothyronine (T3) 1.98 NG/ML (0.82-1.58)
== END 2024-11-07 16:30 | disposition home or self-care (01) ==
LOC: ANHLAB 16:31
PROVIDERS: PCP Nurse Practitioner Family; Visit Provider Internal Medicine
DX: E05.90 Thyrotoxicosis, unspecified without thyrotoxic crisis or storm (principal); E05.00 Thyrotoxicosis with diffuse goiter without thyrotoxic crisis or storm; E04.9 Nontoxic goiter, unspecified
CPT/HCPCS: 36415; 80053; 84439; 84443; 84480